=== PATIENT | female | born 1950 | race Caucasian/White ===

== ENCOUNTER → 2019-09-24 10:40 | Outpatient (CLI) | payer MEDICARE, SELFPAY ==
--- NOTE | ~2019-09-24 | XR_ITS ---
EXAMINATION: XR chest 2V DATE: 09/24/2019 10:57 INDICATION: Other malaise. TECHNIQUE: Frontal and lateral views of the chest were obtained. COMPARISON: Chest single view 04/28/2015, CT abdomen and pelvis 06/27/2019 FINDINGS: The chest demonstrates clear lungs without pneumonia, pleural effusion, or pneumothorax. Th e heart size is normal. IMPRESSION: 1. No acute cardiopulmonary disease. Reviewed, dictated and finalized at location A.
== END ==
PROVIDERS: PCP Internal Medicine; Visit Provider Internal Medicine
DX: R53.81 Other malaise (principal); R53.83 Other fatigue
CPT/HCPCS: 71046

== ENCOUNTER → 2020-03-01 13:48 | Outpatient (CLI) | payer MEDICARE, SELFPAY ==
--- NOTE | ~2020-03-01 | XR_ITS ---
EXAMINATION: XR ankle LT min 3V DATE: 03/01/2020 14:09 INDICATION: Left ankle pain. Injury 3 weeks ago. TECHNIQUE: 4 views of left ankle were obtained. COMPARISON: None. FINDINGS: Bone alignment is normal. There is a punctate calcification distal to lateral malleolus. Th ere is mild osteoarthritis of the ankle joint and talonavicular joint. There is an enthesophyte at pl archie aspect of calcaneal tuberosity. Ankle soft tissue swelling is noted. IMPRESSION: 1. Punctate calcification distal to lateral malleolus, which may be an acute avulsion fracture or a f inding from old injury. 2. Mild polyarticular osteoarthritis. Reviewed, dictated and finalized at location A. IMPRESSION: 1. Punctate calcification distal to lateral malleolus, which may be an acute av ulsion fracture or a finding from old injury. 2. Mild polyarticular osteoarthritis.
== END ==
PROVIDERS: PCP Internal Medicine; Visit Provider Internal Medicine
DX: M62.838 Other muscle spasm (principal); M19.072 Primary osteoarthritis, left ankle and foot
CPT/HCPCS: 73610

== ENCOUNTER 2020-04-30 07:22 | Outpatient (CLI) | payer MEDICARE, SELFPAY ==
--- NOTE | ~2020-04-30 | MM_ITS ---
EXAMINATION: MM screening [facility] BI w altaf HISTORY: Screening mammogram, history of left breast cancer TECHNIQUE: Craniocaudal and mediolateral oblique 3-D tomosynthesis images were obtained and synthetic 2-D images were generated. CAD analysis was submitted and interpreted. COMPARISON: 12/16/2018, 12/12/2017, 12/06/2017, 06/22/2016 BREAST PARENCHYMAL COMPOSITION: There are scattered areas of fibroglandular density. FINDINGS: Stable lumpectomy changes are again noted in the left breast. There is no evidence of suspi cious mass, calcification, or architectural distortion to suggest malignancy in either breast. There has been no suspicious interval change. IMPRESSION: 1. No mammographic evidence of malignancy. 2. Recommend routine screening mammography in one year. BI-RADS Category 2: Benign finding(s). Reviewed, dictated and finalized at location A. CUTTER
== END 2020-04-30 07:23 | disposition home or self-care (01) ==
LOC: ANHIMG 07:27
PROVIDERS: PCP Internal Medicine; Visit Provider Internal Medicine
DX: Z12.31 Encounter for screening mammogram for malignant neoplasm of breast (principal)
CPT/HCPCS: 77063; 77067

== ENCOUNTER → 2020-08-09 00:25 | Outpatient (CLI) | payer MEDICARE, SELFPAY ==
[2020-08-09 19:33] LABS: SARS-CoV-2 RNA PCR Negative
== END ==
PROVIDERS: PCP Internal Medicine; Visit Provider Internal Medicine Cardiovascular Disease
DX: Z01.812 Encounter for preprocedural laboratory examination (principal); Z20.822 Contact with and (suspected) exposure to COVID-19
CPT/HCPCS: C9803; U0003; U0005

== ENCOUNTER 2020-08-12 01:52 | Day surgery (SDC) | payer MEDICARE, SELFPAY ==
[2020-08-11 16:08] VITALS: BMI 31.4
[2020-08-12] VITALS (9 sets, daily range): BP systolic 103–135; BP diastolic 58–80; PULSE 69–90; RESP 14–18; TEMP 36.1; O2SAT 96–99; BMI 31.4
[2020-08-12 08:00] LABS: Basophils Percent Auto 0.5 % (0.2-1.2); Eosinophils Absolute Auto 0.1 K/mm3 (0-0.3); Eosinophils Percent Auto 1.2 % (0-4.4); Hemoglobin 14.7 g/dL (12.0-15.0); Immature Granulocyte Absolute 0.03 K/mm3 (0.00-0.031); Immature Granulocyte Percent A 0.3 % (0-0.5); Lymphocytes Absolute Auto 2.38 K/mm3 (0.9-3.2); Lymphocytes Percent Auto 26.9 % (18.3-44.2); Mean Corpuscular HGB Conc 34.2 g/dl (32-36); Mean Corpuscular Hemoglobin 28.4 pg (26-34); Mean Platelet Volume 9.1 fl (7.4-10.4); Monocytes Absolute Auto 0.6 K/mm3 (0.1-0.6); Monocytes Percent Auto 6.4 % (2.6-8.5); Neutrophils Absolute Auto 5.7 K/mm3 (1.3-6.7); Neutrophils Percent Auto 64.7 % (45.5-73.1); Platelet Count Result 359 k/mm3 (150-375); Red Blood Count 5.18 M/mm3 (4.2-5.4); White Blood Count 8.8 K/mm3 (4.5-10.0)
[2020-08-12 08:16] LABS: Anion Gap 7 mmol/L (8-16); Blood Urea Nitrogen 26 mg/dL (7-17); Calcium 9.6 mg/dL (8.4-10.2); Carbon Dioxide 38 mmol/L (22-30); Chloride 96 mmol/L (98-107); Estimated CRCL calculation 46 ml/min; Estimated Glomerular Filt Rate 50; Glucose 135 mg/dL (65-105); Potassium 3.2 mmol/L (3.4-5.0); Sodium 141 mmol/L (137-145)
[2020-08-12] MEDS: POTASSIUM CHLORIDE 20 MEQ TABLET 40 MEQ PO (09:20)
--- NOTE | 2020-08-12 10:07 | P.PCNCC_ITS ---
Cardiac Cath Procedure Note Date of procedure:: 08/12/20 Performing physician:: Victor Hugo Gold MD date of service 08/12/2020- Indication:: chest pain on exertion Brief clinical history:: this is a 69-year-old female with past medical history of hypertension, hyperlipidemia was evaluated in the office for recurrent episodes of chest pain on exertion. It was typical angina and therefore we decided to bring go to define coronary anatomy. Procedure Procedure performed:: 1-Moderate sedation that started at 9:40 a.m.and ended at 10:04 a.m.using 4mg of Versed and 25mcg fentanyl. The registered nurse was Rody Najera. 2-Selective left and right coronary angiogram. 3-Left heart catheterization with measurement of LVEDP and measurement of gradient across aortic valve. 3- LV angiogram. 4-Right common femoral arterial angiogram. 5-Deployment of 6 [place] Angio-Seal. Sedation/Medication given:: Moderate sedation. Access site:: Right common femoral artery. Estimated blood loss:: 10cc Procedure note:: After informed consent patient was brought in to research laboratory technician with the was draped and prepped in usual manner. Moderate sedation was given and the right groin was infiltrated using 1% lidocaine. Five [place] sheath was obtained using micropuncture needle and the modified Seldinger technique. Selective left coronary angiogram was done using JL4 catheter with the tip of the catheter placed in the left main coronary artery. Selective right coronary angiogram was done using JR4 catheter with the tip of the catheter placed to the right co ronary artery. After that 5 [place] pigtail catheter was advanced across the aortic valve into the left ventricle with measurement of LVEDP and measurement of gradient across aortic valve. revealed angiogram was done as well.Right common femoral arterial angiogram was done. Findings:: 1- left coronary artery is a large artery that divides into large LAD, large circumflex artery. Left main is Free of disease. 2- left anterior descending artery is a large artery that runs and wraps around the apex. Has calcification proximally and proximally there is about 20-30% stenosis. Medium-sized diagonal branch with minimal irregularities. 3- leftcircumflex artery is a large artery and free of disease. Large OM1 that is free disease. 4- right coronary artery is Large artery and dominant and free of disease. 5- LVEDP was 10 mm Hg and no gradient across aortic valve. 6- opening aortic pressure 126/70 shows a pressure 110/70. 6- LV angiogram showed normal LV systolic function with no wall motion abnormalities. 7- right femoral artery angiogram shows no significant disease in the right common femoral artery. Conclusion:: Minimal coronary irregularities Assessment and Plan Additional Plan aggressive risk factor modification for CAD.
--- NOTE | 2020-08-12 10:10 | WPDMODSED ---
Moderate Sedation Note-Pt Data Patient Data Allergies Allergy/AdvReac Type Severity Reaction Status Date / Time No Known Allergies Allergy Verified 08/11/20 17:02 Home Medications Medication Instructions Recorded Confirmed Type cholecalciferol (vitamin D3) 50 50 mcg PO DAILY #90 cap 04/02/20 08/11/20 Rx mcg (2,000 unit) capsule rosuvastatin 20 mg tablet 20 mg PO DAILY #90 tablet 04/19/20 08/11/20 Rx nebivolol 10 mg tablet 10 mg PO DAILY #90 tablet 05/04/20 08/11/20 Rx milnacipran 100 mg tablet See Rx Instructions .ROUTE 05/24/20 08/11/20 Rx .COMPLEX #60 tablet furosemide 80 mg tablet 80 mg PO DAILY #90 tablet 06/30/20 08/11/20 Rx mirabegron 25 mg tablet,extended 25 mg PO DAILY #90 tablet 06/30/20 08/11/20 Rx release 24 hr metolazone 5 mg tablet 5 mg PO DAILY 30 Days #30 tablet 08/09/20 08/11/20 Rx aspirin [Adult Aspirin EC Low 81 mg PO DAILY 08/11/20 08/11/20 History Strength] cariprazine 1.5 mg PO DAILY 08/11/20 08/11/20 History potassium chloride 40 meq PO TID 08/11/20 08/11/20 History pramipexole 1.5 mg PO HS 08/11/20 08/11/20 History Current Medications: Active Medications Sodium Chloride (Normal Saline Iv) 500 mls @ 100 mls/hr IV CONT .Q5H ABBY Sedation/Anesthesia: No previous sedation/anesthesia problems (including family history). [facility] Past Medical History Medical History ADHD (attention deficit hyperactivity disorder) Bipolar II disorder with rapid cycling Breast cancer Left Degenerative disc disease Depression Diverticulitis Fibromyalgia Generalized anxiety disorder HTN (hypertension) Irritable bowel syndrome with constipation Left ovarian cyst UTI (urinary tract infection) Surgical History Surgical History H/O colonoscopy H/O rectal polypectomy History of appendectomy History of bladder suspension procedure Family History Family History Father Cerebrovascular accident Family history of lung cancer Mother Family history of coronary artery disease Other Family history of cardiovascular disease Family history of malignant neoplasm Social History Social History Smoking status: Never smoker Alcohol intake: never Substance use: never Substance use type: does not use Living arrangements: with family Additional living arrangements comments: LIVES W/ , SAGE Gender identity (if verbalized by the patient): Female Spiritual care concerns: No Mod Sed Physical Exam Physical Exam Pre Procedural Exam: Normal: Appearance, Eyes, Ears, Nose, Neck, Throat, Airway, Lungs, Heart Size, Heart Rate, Heart Rhythm, Neuro Exam, Abdomen, Liver, Kidneys, Spleen, Breasts, Genitalia, Extremities and Skin Hours since solid foods: 8 Hours since liquid intake: 8 Internal Medicine - PN: Obj Da Vital Signs Vital Signs: Vital Signs - 24 hr 08/12/20 08:19 Temperature 36.1 C L Pulse Rate 90 Respiratory Rate 14 Blood Pressure 135/80 Pulse Oximetry 98 Meds/Results Medications: Active Medications Generic Name Dose Route Start Last Admin Trade Name Freq PRN Reason Stop Dose Admin Sodium Chloride 500 mls @ 100 mls/hr 08/12/20 07:30 Normal Saline Iv IV CONT .Q5H ABBY Labs CBC & Chem 7: 08/12/20 07:54 08/12/20 07:54 Labs: Laboratory Results - last 24 hr 08/12/20 08/12/20 07:54 07:54 WBC 8.8 RBC 5.18 Hgb 14.7 Hct 43.0 MCV 83.0 MCH 28.4 MCHC 34.2 RDW 13.0 Plt Count 359 MPV 9.1 Immature Gran % (Auto) 0.3 Neut % (Auto) 64.7 Lymph % (Auto) 26.9 Conway % (Auto) 6.4 Eos % (Auto) 1.2 Baso % (Auto) 0.5 Lymph # (Auto) 2.38 [place] # (Auto) 0.6 Eos # (Auto) 0.1 Baso # (Auto) 0.0 Abs Immat Gran (auto) 0.03 Absolute Neuts (auto) 5.7 Absolute Nucleated RBC
--- NOTE | 2020-08-12 10:11 | WPDHPUPDATE1 ---
History and Physical Update Update Date/Time: 08/12/20 10:11 History and Physical has been reviewed, including an updated exam of the patient. There are NO changes in the patient's condition. Risks, benefits, and alternatives have been discussed and questions answered. Patient agrees to proceed with procedure.
--- NOTE | 2020-08-12 12:57 | SUR.PHASEII ---
Pt. given post cardiac cath. discharge education. Pt. verbalizes understanding of education. R femoral site dressing clean, dry, and intact upon discharge with no evidence of bleeding or hematoma. Pt. escorted to private vehicle with spouse. No change in pt. condition upon departure.
== END 2020-08-12 13:28 | disposition home or self-care (01) ==
PROVIDERS: PCP Internal Medicine; Visit Provider Internal Medicine Cardiovascular Disease
PROC: 4A023N7 Measurement of Cardiac Sampling and Pressure, Left Heart, Percutaneous Approach (ICD-10-PCS; CPT 93452; principal; 2020-08-12 09:00)
DX: I25.10 Atherosclerotic heart disease of native coronary artery without angina pectoris (principal); R07.9 Chest pain, unspecified; I10 Essential (primary) hypertension; E78.5 Hyperlipidemia, unspecified; F31.81 Bipolar II disorder; K58.1 Irritable bowel syndrome with constipation; F41.1 Generalized anxiety disorder; M79.7 Fibromyalgia; F90.9 Attention-deficit hyperactivity disorder, unspecified type; Z85.3 Personal history of malignant neoplasm of breast
CPT/HCPCS: 36415; 80048; 85025; 93458; A9270; C1760; C1769; C1887; C1894; C9803; G0269; J1644; J2250; J3010; J7040; U0003; U0005

== ENCOUNTER 2020-09-01 10:23 | Outpatient (CLI) | payer MEDICARE, SELFPAY ==
--- NOTE | ~2020-09-01 | NM_ITS ---
EXAMINATION: NM bone scan whole body DATE: 09/01/2020 13:36 INDICATION: Personal history of malignant neoplasm of breast. TECHNIQUE: 20.6 mCi Tc-99m HDP was administered intravenously. Delayed whole-body scintigrams were o btained. COMPARISON: CT abdomen and pelvis 06/27/2019, chest CT 08/23/2015 FINDINGS: There is disc-centered increased activity in the lumbar spine correlating with severe degen erative disc disease by CT. There is joint-centered increased activity in the sternoclavicular joints and acromioclavicular joints and wrists and feet, likely osteoarthritis. There is increased activity at the sternal synchondrosis correlating with degenerative change by CT. IMPRESSION: 1. No evidence of metastatic disease. Reviewed, dictated and finalized at location A.
== END 2020-09-01 10:24 | disposition home or self-care (01) ==
PROVIDERS: PCP Internal Medicine; Visit Provider Internal Medicine
DX: M89.8X9 Other specified disorders of bone, unspecified site (principal); Z85.3 Personal history of malignant neoplasm of breast
CPT/HCPCS: 78306; A9561

== ENCOUNTER 2021-03-08 10:05 | Outpatient (CLI) | payer MEDICARE, SELFPAY ==
--- NOTE | ~2021-03-08 | US_ITS ---
EXAMINATION: US venous doppler LE RT DATE: 03/08/2021 10:30 INDICATION: Right lower limb edema. TECHNIQUE: Grayscale ultrasound images without and with compression and Doppler ultrasound images of the right lower extremity veins were obtained. COMPARISON: None. FINDINGS: The visualized portions of right common femoral vein, profunda (deep) femoral vein, femoral vein, pop liteal vein, peroneal veins, posterior tibial veins, and greater saphenous vein outflow are patent. IMPRESSION: 1. No deep venous thrombosis. Reviewed, dictated and finalized at location A.
--- NOTE | ~2021-03-08 | XR_ITS ---
XR knee RT 2V 03/08/2021 10:33 Indication: Right knee pain Procedure: 2 views right knee Comparison: 03/22/2018 Findings: There is mild patellofemoral compartment osteoarthritis. Small knee effusion. No acute frac ture or traumatic malalignment. Impression: 1: Mild patellofemoral compartment osteoarthritis with small effusion. Reviewed, dictated and finalized at location A. Impression: 1: Mild patellofemoral compartment osteoarthritis with small effusion.
== END 2021-03-08 10:06 | disposition home or self-care (01) ==
LOC: ANHIMG 10:10
PROVIDERS: PCP Nurse Practitioner Family; Visit Provider Nurse Practitioner Family
DX: R60.0 Localized edema (principal); M17.11 Unilateral primary osteoarthritis, right knee; M25.461 Effusion, right knee
CPT/HCPCS: 73560; 93971

== ENCOUNTER → 2021-11-11 14:31 | Outpatient (CLI) | payer MEDICARE, SELFPAY ==
--- NOTE | ~2021-11-11 | XR_ITS ---
XR chest 2V DATE: 11/11/2021 14:41 INDICATION: Cough TECHNIQUE: 2 views COMPARISON: 09/23/2021 view chest FINDINGS: Cardiomegaly. Aortic calcification, ectasia and mild tortuosity. No hilar or mediastinal enlargement. No pulmonary infiltrate or consolidation, pleural effusion or pulmonary vascular congestion or pneumo thorax. Degenerative changes of the thoracic and lumbar spine. Osteopenia. IMPRESSION: Cardiomegaly, aortic atherosclerosis No active pulmonary disease Reviewed, dictated and finalized at location A.
== END ==
PROVIDERS: PCP Family Medicine; Visit Provider Nurse Practitioner Family
DX: R05.9 Cough, unspecified (principal); M47.815 Spondylosis without myelopathy or radiculopathy, thoracolumbar region
CPT/HCPCS: 71046

== ENCOUNTER 2022-03-10 11:05 | Outpatient (CLI) | payer MEDICARE, SELFPAY ==
[2022-03-10 12:34] LABS: Appearance Urine Clear (Clear); Bilirubin Urine Negative (Negative); Blood Urine Negative (Negative); Color Urine Yellow (Yellow); Glucose Urine UA Negative (Negative); Ketones Urine Negative (Negative); Leukocyte Esterase Ur Negative LEU/UL (Negative); Nitrate Urine Negative (Negative); Protein Urine Negative (Negative); Specific Grav Ur 1.015 (1.001-1.035); Urobilinogen Urine 0.2 mg/dL (<2.0)
[2022-03-10 12:45] LABS: Add Urine Microscopic? NO
[2022-03-10 13:28] LABS: Anion Gap 11 mmol/L (8-16); Blood Urea Nitrogen 23 mg/dL (7-17); Carbon Dioxide 26 mmol/L (22-30); Chloride 101 mmol/L (98-107); Estimated Glomerular Filt Rate 45; Glucose 108 mg/dL (65-110); Potassium 4.3 mmol/L (3.4-5.0); Sodium 138 mmol/L (137-145)
[2022-03-10 13:32] LABS: Partial Thromboplastin Time 30.9 SECONDS (22.3-36.8)
== END 2022-03-10 11:06 | disposition home or self-care (01) ==
LOC: ANHSURGERY 11:12
PROVIDERS: Anesthesiology; PCP Nurse Practitioner Family; Visit Provider Urology
DX: N36.42 Intrinsic sphincter deficiency (ISD) (principal); N18.30 Chronic kidney disease, stage 3 unspecified; Z01.818 Encounter for other preprocedural examination
CPT/HCPCS: 36415; 80048; 81003; 85610; 85730

== ENCOUNTER 2022-03-13 01:33 | Day surgery (SDC) | payer MEDICARE, SELFPAY ==
[2022-03-02 12:36] VITALS: BMI 32.5
--- NOTE | 2022-03-02 12:42 | PC.NURSE ---
Report to the Outpatient Waiting Room, entrance under the green pavilion located off [facility], at time _1015_ on date _[id number]_. OR Time: _1215_. Time changes happen often and if your time is changed the preop area will call you the afternoon before. - You and your visitor will be asked to self-screen and do not enter if you have any COVID symptoms. - Only one visitor and NO children visitors are allowed at this time. - The patient visitor is requested to leave or wait in car when not with patient due to restrictions. - A mask is required within the hospital. Patients may have clear liquids (water, carbonated beverages, clear teas, apple juice) until 3 hours prior to surgery with a maximum of 20 ounces. - No food from midnight until time of surgery Take the following medications with a SIP of water the morning of surgery: ____Levothyroxine and Nebivilol and if needed alprazolam. Medications to discontinue per physician ____Aspirin Date to take last [id number] Please no make-up, nail romansh, hairspray, perfume, deodorant, or body powder the day of surgery. No jewelry (including any body piercings) or valuables the day of surgery, leave them at home. Please take a shower or bath the night before, or the morning of, surgery with an antibacterial soap. Wear comfortable, loose fitting clothing. - Jewelry must be removed prior to entering the operating room. Rings and piercings that are not removed may be cut off. - The hospital will not accept responsibility for valuables. - Please leave all valuables, including medications, at home the day of surgery. If you are going home after surgery, a licensed tractor driver must drive you home. - NO public transportation without another adult. - We recommend that an adult stay with you for 24 hours following discharge. - We also recommend that you do not drive, make important decision, drink alcoholic beverages, or take any drugs that were not prescribed by your health care provider for at least 24 hours after your discharge time. Follow any additional instructions given to you from your surgeon. If you or anyone in your household have experienced Covid symptoms in the past week, please notify your surgeon or the nurse liaison at the phone number below for possible testing. Telephone instructions given to __Patient___and asked if any additional questions and then verbalized understanding. Patient advised to call surgeon office or pre surgery nurse liaison [phone] if any additional questions.
--- NOTE | 2022-03-10 10:19 | PM.IMHP ---
H&P: HPI History of Present Illness Date/Time: 03/10/22 10:19 Chief Complaint: Incontinence Narrative: 71-year-old incontinence. She is on medications for overactive bladder. She presents for a bulking agent her stress of continence portion. She has intrinsic sphincter deficiency Review of Systems Review of Systems: All systems reviewed & are unremarkable except as noted in HPI and below PMFSH Past Medical History Medical History Acute sinusitis ADHD (attention deficit hyperactivity disorder) B12 deficiency Bilateral edema of lower extremity Bipolar II disorder with rapid cycling BMI 32.0-32.9,adult Breast cancer Left Breast cancer screening Bunion, left foot Cataracts, both eyes Chest pain CKD (chronic kidney disease) stage 3, GFR 30-59 ml/min Cough Degenerative disc disease Depression Diverticulitis Dyspnea on exertion Dyspnea on exertion Elevated fasting glucose Fatigue Fatigue Fibromyalgia Foot pain, left Gastric neurostimulator device in situ implanted October 2019 at [facility] Generalized anxiety disorder HTN (hypertension) Hyperlipidemia Hypertension Irritable bowel syndrome with constipation Left ovarian cyst Leg edema, right Memory loss Nausea Need for hepatitis C screening test Osteopenia Overactive bladder Pain in right leg Personal history of colonic polyps Biopsy shows tubular adenoma (October 2019) Restless leg syndrome Right knee pain Shortness of breath UTI (urinary tract infection) Wheezing Surgical History Surgical History H/O colonoscopy H/O rectal polypectomy History of appendectomy History of bladder suspension procedure Family History Family History Father Cerebrovascular accident Family history of lung cancer Mother Family history of coronary artery disease Other Family history of cardiovascular disease Family history of malignant neoplasm Social History Social History Smoking status: Never smoker Alcohol intake: never Substance use: never Substance use type: does not use Additional living arrangements comments: LIVES W/ , SAGE Gender identity (if verbalized by the patient): Female Spiritual care concerns: No Meds Home Medications and Allergies Home Medications Medication Instructions Recorded Confirmed Type aspirin 81 mg tablet,delayed 81 mg PO DAILY 08/11/20 03/02/22 History release famotidine 20 mg tablet 20 mg PO BID #60 tabs 03/08/21 03/02/22 Rx levothyroxine 25 mcg capsule 25 mcg PO DAILY 03/08/21 03/02/22 History nebivolol 20 mg tablet 20 mg PO DAILY 90 days #90 tabs 03/21/21 03/02/22 Rx spironolactone 100 mg tablet 100 mg PO QAM 05/31/21 03/02/22 History milnacipran 100 mg tablet (Savella) 100 mg PO BID #60 tabs 10/15/21 03/02/22 Rx pramipexole 1.5 mg tablet 1.5 mg PO HS #90 tabs 11/11/21 03/02/22 Rx metformin 500 mg tablet,extended 500 mg PO BID #60 tabs 12/27/21 03/02/22 Rx release 24hr alprazolam 0.25 mg tablet (Xanax) 0.25 mg PO BID PRN anxiety #60 tabs 02/16/22 03/02/22 Rx cyanocobalamin (vitamin B-12) 500 500 mcg PO DAILY 03/02/22 03/02/22 History mcg tablet (Vitamin B-12) oxybutynin chloride 10 mg 10 mg PO DAILY 03/02/22 03/02/22 History tablet,extended release 24 hr Allergies Allergy/AdvReac Type Severity Reaction Status Date / Time melatonin AdvReac Severe Vomiting Verified 03/02/22 12:32 diphenhydramine AdvReac Unknown Shakiness Verified 03/02/22 12:32 [From Benadryl] Exam Narrative: No acute distress Fixed urethra Alert orient x3 Assessment and Plan Assessment and plan (1) Intrinsic sphincter deficiency (ISD): Code(s): N36.42 - Intrinsic sphincter deficiency (ISD) Status: Acute Assessment and Plan: Cystoscopy with injecti
--- NOTE | 2022-03-13 07:16 | WPDHPUPDATE1 ---
History and Physical Update Update Date/Time: 03/13/22 07:16 History and Physical has been reviewed, including an updated exam of the patient. There are NO changes in the patient's condition. Risks, benefits, and alternatives have been discussed and questions answered. Patient agrees to proceed with procedure.
[2022-03-13 10:44] VITALS: BP 131/68; PULSE 70; RESP 18; TEMP 36.1; O2SAT 100
[2022-03-13] MEDS: LACTATED RINGERS 1,000 ML 30 ML IV CONT ×2 (10:58→13:15)
[2022-03-13 11:25] LABS: Glucose Point of Care 112 mg/dl (65-105)
--- NOTE | 2022-03-13 11:50 | WPDANESEPPF ---
Anes - Initial Pre Proc Eval Procedure: Operation Date: 03/13/22 12:15 Proposed Procedures p Cystoscopy with Bulking Agent - Benny Morfin MD Date/Time: 03/13/22 11:50 Surgeon: Benny Morfin MD Pre Op Diagnosis: intransient sphincter deficiency Patient Data Age: 71 Gender: F Height: 1.63 m Weight: 86.9 kg Last Vital Signs Temp 36.1 C L 03/13/22 10:44 Pulse 70 03/13/22 10:44 Resp 18 03/13/22 10:44 BP 131/68 03/13/22 10:44 Pulse Ox 100 03/13/22 10:44 O2 Del Method Room Air 03/13/22 10:44 Allergies Allergy/AdvReac Type Severity Reaction Status Date / Time melatonin AdvReac Severe Vomiting Verified 03/13/22 11:05 diphenhydramine AdvReac Unknown Shakiness Verified 03/13/22 11:05 [From [facility]] Home Medications Medication Instructions Recorded Confirmed Type aspirin 81 mg tablet,delayed 81 mg PO DAILY 08/11/20 03/13/22 History release famotidine 20 mg tablet 20 mg PO BID #60 tabs 03/08/21 03/13/22 Rx levothyroxine 25 mcg capsule 25 mcg PO DAILY 03/08/21 03/13/22 History nebivolol 20 mg tablet 20 mg PO DAILY 90 days #90 tabs 03/21/21 03/13/22 Rx spironolactone 100 mg tablet 100 mg PO QAM 05/31/21 03/13/22 History milnacipran 100 mg tablet (Savella) 100 mg PO BID #60 tabs 10/15/21 03/13/22 Rx pramipexole 1.5 mg tablet 1.5 mg PO HS #90 tabs 11/11/21 03/13/22 Rx metformin 500 mg tablet,extended 500 mg PO BID #60 tabs 12/27/21 03/13/22 Rx release 24hr alprazolam 0.25 mg tablet (Xanax) 0.25 mg PO BID PRN anxiety #60 tabs 02/16/22 03/13/22 Rx cyanocobalamin (vitamin B-12) 500 500 mcg PO DAILY 03/02/22 03/13/22 History mcg tablet (Vitamin B-12) oxybutynin chloride 10 mg 10 mg PO DAILY 03/02/22 03/13/22 History tablet,extended release 24 hr Laboratory Tests 03/13/22 11:22 POC Capillary Glucose 112 mg/dl H mg/dl (65-105) Patient hx anesthesia problems: none Family hx anesthesia problems: other (mother slow to awaken) Results Review: All pre-operative results and documents have been reviewed as part of the pre-operative evaluation. [facility] Past Medical History Medical History Acute sinusitis ADHD (attention deficit hyperactivity disorder) B12 deficiency Bilateral edema of lower extremity Bipolar II disorder with rapid cycling BMI 32.0-32.9,adult Breast cancer Left Breast cancer screening Bunion, left foot Cataracts, both eyes Chest pain CKD (chronic kidney disease) stage 3, GFR 30-59 ml/min Cough Degenerative disc disease Depression Diverticulitis Dyspnea on exertion Dyspnea on exertion Elevated fasting glucose Fatigue Fatigue Fibromyalgia Foot pain, left Gastric neurostimulator device in situ implanted October 2019 at [facility] Gastroenterology Generalized anxiety disorder HTN (hypertension) Hyperlipidemia Hypertension Irritable bowel syndrome with constipation Left ovarian cyst Leg edema, right Memory loss Nausea Need for hepatitis C screening test Osteopenia Overactive bladder Pain in right leg Personal history of colonic polyps Biopsy shows tubular adenoma (October 2019) Restless leg syndrome Right knee pain Shortness of breath UTI (urinary tract infection) Wheezing Surgical History Surgical History H/O colonoscopy H/O rectal polypectomy History of appendectomy History of bladder suspension procedure Family History Family History Father Cerebrovascular accident Family history of lung cancer Mother Family history of coronary artery disease Other Family history of cardiovascular disease Family history of malignant neoplasm Social History Social History Smoking status: Never smoker Alcohol intake: never Substance use: never Substance use type: does not use Living arrangeme
[2022-03-13] MEDS: ceFAZolin 2 GM/D5W 50 ML 2 GM/50 ML BAG IVPB (12:06)
--- NOTE | 2022-03-13 12:25 | P.OP_ITS ---
Procedure Note - Detailed Date of Procedure 03/13/22 Pre-op Diagnosis intransient sphincter deficiency Post-op Diagnosis Same Procedure Performed Cystoscopy with suburethral injection of implant material [id number] Surgeon Benny Morfin MD Anesthesia MAC Indications This is a patient with stress urinary incontinence due to intrinsic sphincter deficiency. She has undergone a previous stress incontinence procedure. She desires surgical correction. They understand the risk of bleeding, and infection, lack of efficacy, need for repeat procedures, obstructive voiding requiring catheterization. They agreed to proceed. Findings Open urethra consistent with intrinsic sphincter deficiency Normal cystoscopy Description of Procedure The patient was correctly identified and informed consent was obtained. They w ere brought to the operating room. They were given MAC anesthesia. They were placed in the dorsal lithotomy position. They were prepped and draped in a sterile fashion. A time-out performed. Cystoscopy revealed no tumors in the bladder and an open urethra consistent with intrinsic sphincter deficiency. I chose a site in the urethra 2 cm distal to bladder neck. I injected the bulking agent circumferentially. I used 1 syringe of the bulking material total. The bulk material was bulkamid. Threre Was good bulking effect. The bladder was left partially full. They were awakened and transferred to the PACU in stable condition. Implants Urethral bulking agent Estimated Blood Loss 1 Drains No Packing No Pathology None sent Complications No immediate complications Condition Stable Disposition PACU
[2022-03-13 12:28] VITALS: BP 136/74; PULSE 71; RESP 12; O2SAT 95
[2022-03-13] MEDS: ONDANSETRON INJ 4 MG/2 ML VIAL IV PUSH (12:40)
[2022-03-13 12:46] LABS: Glucose Point of Care 100 mg/dl (65-105)
[2022-03-13 12:55] VITALS: BP 127/59; PULSE 57; RESP 12; O2SAT 98
[2022-03-13 13:25] VITALS: BP 116/60; PULSE 56; RESP 14
[2022-03-13 13:55] VITALS: BP 116/58; PULSE 56; RESP 14
[2022-03-13 14:20] VITALS: BP 127/65; PULSE 60; RESP 14
== END 2022-03-13 14:24 | disposition home or self-care (01) ==
PROVIDERS: PCP Nurse Practitioner Family; Visit Provider Urology
PROC: 3E0K8GC Introduction of Other Therapeutic Substance into Genitourinary Tract, Via Natural or Artificial Opening Endoscopic (ICD-10-PCS; CPT 51715; principal; 2022-03-13 12:15)
DX: N36.42 Intrinsic sphincter deficiency (ISD) (principal); N39.3 Stress incontinence (female) (male); I12.9 Hypertensive chronic kidney disease with stage 1 through stage 4 chronic kidney disease, or unspecified chronic kidney disease; N18.30 Chronic kidney disease, stage 3 unspecified; E78.5 Hyperlipidemia, unspecified; F31.9 Bipolar disorder, unspecified; M79.7 Fibromyalgia; E53.8 Deficiency of other specified B group vitamins; K58.1 Irritable bowel syndrome with constipation; G25.81 Restless legs syndrome; F41.1 Generalized anxiety disorder; E66.9 Obesity, unspecified; Z68.32 Body mass index [BMI] 32.0-32.9, adult; Z79.82 Long term (current) use of aspirin; Z79.84 Long term (current) use of oral hypoglycemic drugs
CPT/HCPCS: 51715; 36415; 80048; 81003; 82948; 85610; 85730; A9270; J0690; J2405; J2704; J3010; J7120; L8606

== ENCOUNTER → 2023-04-24 09:55 | Outpatient (CLI) | payer MEDICARE, SELFPAY ==
--- NOTE | ~2023-04-24 | XR_ITS ---
Clinical Indication: Cough PA and lateral views of the chest: Comparison: 11/11/2021 Findings: The lungs are clear, without evidence of focal consolidation or pleural effusion. Cardiome diastinal silhouette is within normal limits. Bones and soft tissues are unremarkable. Impression: Normal chest. Reviewed, dictated and finalized at location . TABOUT HEAD Impression: Normal chest.
== END ==
PROVIDERS: PCP Family Medicine; Visit Provider Nurse Practitioner Family
DX: R05.9 Cough, unspecified (principal)
CPT/HCPCS: 71046

== ENCOUNTER → 2023-08-28 13:35 | Outpatient (CLI) | payer MEDICARE, SELFPAY ==
--- NOTE | ~2023-08-28 | XR_ITS ---
EXAM: XR abdomen/kub 1V DATE: 08/28/2023 13:54 HISTORY: R10.9 - Unspecified abdominal pain . COMPARISON: CT abdomen pelvis 06/27/2019. FINDINGS: Clear lung bases. Normal bowel gas pattern. Hepatomegaly. Right-sided stimulator pack, jessa d terminating over the left sacrum. Multiple pelvic phleboliths. Lumbar degenerative disc disease. Mi ld bilateral hip osteoarthritis. IMPRESSION: Hepatomegaly. No radiographic evidence of obstruction or ileus. Reviewed, dictated and finalized at location K.
== END ==
PROVIDERS: PCP Family Medicine; Visit Provider Nurse Practitioner Family
DX: R10.9 Unspecified abdominal pain (principal); R15.9 Full incontinence of feces; R16.0 Hepatomegaly, not elsewhere classified
CPT/HCPCS: 74018

== ENCOUNTER 2023-12-10 09:43 | Outpatient (CLI) | payer MEDICARE, SELFPAY ==
--- NOTE | ~2023-12-10 | XR_ITS ---
EXAMINATION: XR sacrum coccyx min 2V DATE: 12/10/2023 10:03 INDICATION: Fecal incontinence not due to organic disease. TECHNIQUE: 3 views of the sacrum and coccyx were obtained. COMPARISON: None. FINDINGS: Bone alignment is normal. No fracture. There is severe lumbar spondylosis. There is an elec trode in left S3 neural foramen. IMPRESSION: 1. Electrode in left S3 neural foramen. Reviewed, dictated and finalized at location A.
== END 2023-12-10 09:44 | disposition home or self-care (01) ==
LOC: ANHIMG 09:46
PROVIDERS: PCP Family Medicine; Visit Provider Urology
DX: F98.1 Encopresis not due to a substance or known physiological condition (principal)
CPT/HCPCS: 72220

== ENCOUNTER 2023-12-24 11:59 | Outpatient (CLI) | payer MEDICARE, SELFPAY ==
--- NOTE | ~2023-12-24 | US_ITS ---
BILATERAL LOWER EXTREMITY VENOUS ULTRASOUND Ordering provider: Bren Andre NP History: . R60.0 - Localized edema . Comparison: None. FINDINGS: RIGHT LOWER EXTREMITY VEINS: --COMMON FEMORAL: Patent and free of thrombus. Normal compressibility, phasic flow and augmentation. --PROXIMAL SUPERFICIAL FEMORAL: Patent and free of thrombus. Normal compressibility, phasic flow and augmentation. --DISTAL SUPERFICIAL FEMORAL: Patent and free of thrombus. Normal compressibility, phasic flow and au gmentation. --POPLITEAL: Patent and free of thrombus. Normal compressibility, phasic flow and augmentation. --POSTERIOR TIBIAL: Patent and free of thrombus. Normal compressibility, phasic flow and augmentation . LEFT LOWER EXTREMITY VEINS: --COMMON FEMORAL: Patent and free of thrombus. Normal compressibility, phasic flow and augmentation. --PROXIMAL SUPERFICIAL FEMORAL: Patent and free of thrombus. Normal compressibility, phasic flow and augmentation. --DISTAL SUPERFICIAL FEMORAL: Patent and free of thrombus. Normal compressibility, phasic flow and au gmentation. --POPLITEAL: Patent and free of thrombus. Normal compressibility, phasic flow and augmentation. --POSTERIOR TIBIAL: Patent and free of thrombus. Normal compressibility, phasic flow and augmentation . IMPRESSION: Negative bilateral lower extremity venous US. No deep vein thrombosis. Reviewed, dictated and finalized at location A.
--- NOTE | ~2023-12-24 | XR_ITS ---
Clinical Indication: Dyspnea PA and lateral views of the chest: Comparison: 04/24/2023 Findings: The lungs are clear, without evidence of focal consolidation or pleural effusion. Cardiome diastinal silhouette is within normal limits. Bones and soft tissues are unremarkable. Impression: Normal chest. Reviewed, dictated and finalized at location . Impression: Normal chest.
== END 2023-12-24 12:00 | disposition home or self-care (01) ==
LOC: ANHIMG 12:03
PROVIDERS: PCP Family Medicine; Visit Provider Nurse Practitioner Family
DX: R60.0 Localized edema (principal); R05.9 Cough, unspecified; R06.09 Other forms of dyspnea
CPT/HCPCS: 71046; 93970

== ENCOUNTER 2024-01-04 14:05 | Outpatient (CLI) | payer MEDICARE, SELFPAY ==
--- NOTE | ~2024-01-04 | MM_ITS ---
EXAMINATION: MM screening eric BI w altaf HISTORY: Screening TECHNIQUE: Craniocaudal and mediolateral oblique 3-D tomosynthesis images were obtained and synthetic 2-D images were generated. CAD analysis was submitted and interpreted. COMPARISON: Comparison to multiple prior studies sequentially, with oldest reviewed study dated 10/2016. BREAST PARENCHYMAL COMPOSITION: Not dense: There are scattered areas of fibroglandular density. FINDINGS: There is no evidence of suspicious mass, calcification, or architectural distortion to sugg est malignancy in either breast. There has been no suspicious interval change. IMPRESSION: 1. No mammographic evidence of malignancy. 2. Recommend routine screening mammography in one year. BI-RADS Category 1: Negative Reviewed, dictated and finalized at location B.
== END 2024-01-04 14:06 ==
LOC: MICIMG 14:06
PROVIDERS: PCP Family Medicine; Visit Provider Nurse Practitioner Family
DX: Z12.31 Encounter for screening mammogram for malignant neoplasm of breast (principal)
CPT/HCPCS: 77063; 77067

== ENCOUNTER 2024-02-06 08:14 | Outpatient (CLI) | payer MEDICARE, SELFPAY ==
--- NOTE | 2024-02-06 08:24 | ECHO_ITS ---
Patient Info Name: Ratna Teran Age: 73 years : 1950 Gender: Female Ht: 64 in Wt: 187 lbs BSA: 1.99 m2 HR: 73 bpm BP: 130 / 76 mmHg Heart Rhythm: Sinus Rhythm Technical Quality: Fair Exam Date: 02/06/2024 8:33 AM Exam Location: Echo Lab Patient Status: Outpatient Admit Date: 02/06/2024 Staff Ordering Physician: Bren Andre NP Field Technical Specialist: Claudette Simms RDCS Attending Provider: Bren Andre NP Exam Type: CA echo doppler color flow Study Info Indications R06.09 - Other forms of dyspnea Complete two-dimensional, color flow and Doppler transthoracic echocardiogram is performed. Summary 1. Complete two-dimensional, color flow and Doppler transthoracic echocardiogram is performed. 2. Left ventricular chamber dimension is normal. 3. Ventricular septum is sigmoid shaped. No resting LVOT obstruction. 4. Left ventricular systolic function is normal, estimated at 60-65%. 5. The left ventricular diastolic function is grade I diastolic dysfunction. 6. E/e' 10 is mildly elevated. 7. Left atrial chamber dimension is mildly enlarged. 8. There is mild aortic valve sclerosis. 9. There is mild mitral valve regurgitation. 10. There is trace tricuspid valve regurgitation. 11. No pulmonary hypertension, estimated pulmonary arterial systolic pressure is 24 mmHg. Left Ventricle E/e' 10 is mildly elevated. Ventricular septum is sigmoid shaped. No resting LVOT obstruction. Left ventricular chamber dimension is normal. Left ventricular systolic function is normal, estimated at 60-65%. The left ventricular diastolic function is grade I diastolic dysfunction. Right Ventricle Right ventricular systolic function is normal and with normal TAPSE 2.0 cm. Right ventricular chamber dimension is normal. Left Atria Left atrial chamber dimension is mildly enlarged. Right Atria Right atrial chamber dimension is normal. Aortic Valve The aortic valve is trileaflet. There is mild aortic valve sclerosis. There is no aortic valve stenosis. There is no aortic valve regurgitation. Pulmonic Valve There is no pulmonic regurgitation. Mitral Valve There is no mitral valve stenosis. There is mild mitral valve regurgitation. Tricuspid Valve There is trace tricuspid valve regurgitation. No pulmonary hypertension, estimated pulmonary arterial systolic pressure is 24 mmHg. Pericardium/Pleural There is no pericardial effusion. Inferior Vena Cava Normal inferior vena cava with >50% collapse upon inspiration consistent with normal right atrial pressure, 5 mmHg. Aorta The aortic root size at the sinus of Valsalva is normal. Left Ventricular Outflow Tract Name Value Normal LVOT 2D LVOT Diameter 2.0 cm LVOT Doppler LVOT Peak Gradient 4 mmHg LVOT Mean Gradient 2 mmHg LVOT VTI 22 cm LVOT VTI/AV VTI Ratio 0.6 LVOT Stroke Volume 68 ml LVOT CO 4.5 l/min LVOT CI 2.2 l/min/m2 Pulmonic Valve Name
--- NOTE | 2024-02-06 08:30 | EST_ITS ---
Patient Info Name: Ratna eTran Age: 73 years : 1950 Gender: Female Ht: 64 in Wt: 189 lbs BSA: 2.00 m2 HR: 66 bpm BP: 112 / 64 mmHg Heart Rhythm: Sinus Rhythm Exam Date: 02/06/2024 10:05 AM Exam Location: Echo Lab Patient Status: Outpatient Admit Date: 02/06/2024 Staff Ordering Physician: Bren Andre NP Attending Provider: Bren Andre NP Exercise Technologist: Carli Allen CT Exercise Physician: Wong Merino MD Exam Type: CA stress test treadmill Study Info Indications I10 - Essential (primary) hypertension R06.09 - Other forms of dyspnea A treadmill exercise stress test was performed. Summary 1. Exercise capacity fair to good at 6-[address] segment response to stress. 3. Hypertensive BP response to exercise. 4. Stress test was supervised and interpreted by Dr. Wong Merino. Protocol: Carlos Eduardo Stress ECG Details Stage: REST Duration (min): 1 min : 9 sec Speed (mph): 0.0 Grade (%): 0 HR (bpm): 70 SBP (mmHg): 112 DBP (mmHg): 64 METS: --- Stage: REST Duration (min): 25 min : 1 sec Speed (mph): 0.0 Grade (%): 0 HR (bpm): 73 SBP (mmHg): 112 DBP (mmHg): 64 METS: --- Stage: STAGE 1 Duration (min): 1 min : 0 sec Speed (mph): 1.7 Grade (%): 10 HR (bpm): 90 SBP (mmHg): 112 DBP (mmHg): 64 METS: --- Stage: STAGE 1 Duration (min): 2 min : 0 sec Speed (mph): 1.7 Grade (%): 10 HR (bpm): 98 SBP (mmHg): 112 DBP (mmHg): 64 METS: --- Stage: STAGE 1 Duration (min): 3 min : 0 sec Speed (mph): 1.7 Grade (%): 10 HR (bpm): 114 SBP (mmHg): 156 DBP (mmHg): 90 METS: --- Stage: STAGE 2 Duration (min): 1 min : 0 sec Speed (mph): 2.5 Grade (%): 12 HR (bpm): 123 SBP (mmHg): 156 DBP (mmHg): 90 METS: --- Stage: STAGE 2 Duration (min): 2 min : 0 sec Speed (mph): 2.5 Grade (%): 12 HR (bpm): 133 SBP (mmHg): 196 DBP (mmHg): 87 METS: --- Stage: STAGE 2 Duration (min): 2 min : 59 sec Speed (mph): 3.4 Grade (%): 14 HR (bpm): 141 SBP (mmHg): 196 DBP (mmHg): 87 METS: --- Stage: RECOVERY Duration (min): 1 min : 0 sec Speed (mph): 0.0 Grade (%): 0 HR (bpm): 131 SBP (mmHg): 185 DBP (mmHg): 85 METS: --- Stage: RECOVERY Duration (min): 2 min : 0 sec Speed (mph): 0.0 Grade (%): 0 HR (bpm): 110 SBP (mmHg): 185 DBP (mmHg): 85 METS: --- Stage: RECOVERY Duration (min): 3 min : 0 sec Speed (mph): 0.0 Grade (%): 0 HR (bpm): 88 SBP (mmHg): 196 DBP (mmHg): 87 METS: --- Stage: RECOVERY Duration (min): 3 min : 5 sec Speed (mph): 0.0 Grade (%): 0 HR (bpm): 85 SBP (mmHg): 196 DBP (mmHg): 87 METS: --- Rest HR: 73 bpm Peak HR: 141 bpm Rest Sys BP: 112 mmHg Peak Sys BP: 196 mmHg Max Pred HR: 149 bpm % Max Pred HR: 95 % Target HR: 127 bpm Max RPP: 27,636 bpm*mmHg Hurtado Score: 0 Target HR Summary: Patient's target heart rate was ach
== END 2024-02-06 08:15 | disposition home or self-care (01) ==
LOC: ANHCARD 08:16
PROVIDERS: PCP Family Medicine; Visit Provider Nurse Practitioner Family
DX: R06.09 Other forms of dyspnea (principal); I10 Essential (primary) hypertension; R07.9 Chest pain, unspecified; E78.5 Hyperlipidemia, unspecified; I34.0 Nonrheumatic mitral (valve) insufficiency
CPT/HCPCS: 93017; 93306

== ENCOUNTER 2024-03-07 04:13 | Day surgery (SDC) | payer MEDICARE, SELFPAY ==
[2024-02-28 15:37] VITALS: BMI 30.8
--- NOTE | 2024-02-28 15:38 | PC.NURSE ---
Report to the Outpatient Waiting Room, entrance under the green pavilion located off [facility], at time _0600_ on date _[id number]_. Planned Procedure Time: _0730_.? Time changes happen often and if your time is changed the preop area will call you the afternoon before. - You and your visitor will be asked to self-screen and do not enter if you have any COVID symptoms. Please call surgeon if you need to reschedule. - A mask is optional within the hospital at this time. Patients may have clear liquids (water, carbonated beverages, clear teas, apple juice) until 3 hours prior to surgery with a maximum of 20 ounces. - No food from midnight until time of surgery and no smoking Take only the following medications with a SIP of water on the morning of surgery: ___Buspirone, Duloxetine, Keppra, Levothyroxine, and Nebivolol DO NOT STOP ANY OF YOUR OTHER PRESCRIPTION MEDICATIONS PRIOR TO SURGERY EXCEPT THE FOLLOWING Medications to discontinue per physician None Please no make-up, nail japanese, hairspray, perfume, deodorant, or body powder the day of surgery.? No jewelry (including any body piercings) or valuables the day of surgery, leave them at home.? Please take a shower or bath the night before, or the morning of, surgery with an antibacterial soap.? Wear comfortable, loose fitting clothing.? . - Jewelry must be removed prior to entering the operating room.? Rings and piercings that are not removed may be cut off. - The hospital will not accept responsibility for valuables.? - Please leave all valuables, including medications, at home the day of surgery. If you are going home after surgery, a licensed regional company flatbed truck driver must drive you home.? - NO public transportation without another adult if you receive anesthesia. - We recommend that an adult stay with you for 24 hours following discharge. - We also recommend that you do not drive, make important decision, drink alcoholic beverages, or take any drugs that were not prescribed by your health care provider for at least 24 hours after your discharge time. Follow any additional instructions given to you from your surgeon. Telephone instructions given to __Ratna__and asked if any additional questions and then verbalized understanding. Patient advised to call surgeon office or pre surgery nurse liaison [phone] if any additional questions.
--- NOTE | 2024-03-02 17:00 | PM.IMHP ---
H&P: HPI History of Present Illness Date/Time: 03/02/24 17:00 Chief Complaint: UUI/FI Narrative: UUI and FI. previous SMS. need for MRI Review of Systems Review of Systems: All systems reviewed & are unremarkable except as noted in HPI and below PMFSH Past Medical History Medical History Abdominal pain Acute sinusitis Adenomatous colon polyp ADHD (attention deficit hyperactivity disorder) Anemia Anxiety B12 deficiency Bilateral edema of lower extremity Bipolar disorder Bipolar II disorder with rapid cycling BMI 25.0-25.9,adult BMI 27.0-27.9,adult BMI 32.0-32.9,adult BMI 33.0-33.9,adult Body mass index (BMI) of 31.0 to 31.9 in adult Breast cancer Left Breast cancer screening 03/27/22 - benign Bunion, left foot Cataracts, both eyes Chest pain Chronic diastolic (congestive) heart failure CKD (chronic kidney disease) stage 3, GFR 30-59 ml/min Cough Degenerative disc disease Depression Diverticulitis Dyspnea on exertion Dyspnea on exertion Dysuria Elevated fasting glucose Elevated TSH Essential tremor Fatigue Fatigue Fecal incontinence Fever blister Fibromyalgia Foot pain, left Gastric neurostimulator device in situ implanted [address] [facility] Gastroenterology Generalized anxiety disorder GERD (gastroesophageal reflux disease) HTN (hypertension) Hyperlipidemia Hypertension Hyperuricemia Irritable bowel syndrome with constipation Irritable bowel syndrome with diarrhea Left ovarian cyst Leg edema, right Memory loss Meningioma Muscle cramp Nausea Need for hepatitis C screening test Osteopenia 03/16/22 DEXA - normal; repeat 2 years Overactive bladder Pain in right leg Pain, joint, multiple sites Peripheral edema Personal history of colonic polyps Biopsy shows tubular adenoma (October 2019) Prediabetes Restless leg syndrome Rib pain on left side Right knee pain Seizure Serum calcium elevated Shortness of breath Thoracic back pain Upper respiratory tract infection UTI (urinary tract infection) Weakness Wheezing Surgical History Surgical History H/O colonoscopy H/O rectal polypectomy History of appendectomy History of bladder suspension procedure Family History Family History Father Cerebrovascular accident Family history of lung cancer Mother Family history of coronary artery disease Other Family history of cardiovascular disease Family history of malignant neoplasm Social History Social History Smoking status: Never smoker Alcohol intake: never Substance use: never Substance use type: does not use Lack of Transportation: No Lack of Food: Never True Current Housing: I Have Housing Concerned About Future Housing: No Difficulty Paying Gas/Electric Bills: No Difficulty Paying for Meds: No Currently Unemployed: No Education: High School Diploma/GED Difficulty w/ Childcare or Family Care: No Living arrangements: with family Additional living arrangements comments: LIVES W/ , SAGE Gender identity (if verbalized by the patient): Female Spiritual care concerns: No Meds Home Medications and Allergies Home Medications Medication Instructions Recorded Confirmed Type famotidine 20 mg tablet 20 mg PO BID #60 tabs 03/08/21 02/28/24 Rx albuterol sulfate 90 mcg/actuation 1 - 2 inh inhalation Q4-6H PRN 07/31/22 02/28/24 Rx aerosol inhaler shortness of breath or wheezing #8.5 grams levetiracetam 500 mg tablet 500 mg PO Q12H 04/24/23 02/28/24 History (Chema) nebivolol 20 mg tablet 20 mg PO DAILY 90 days #90 tabs 07/05/23 02/28/24 Rx rosuvastatin 10 mg tablet 10 mg PO DAILY #30 tabs 08/02/23 02/28/24 Rx hydrocortisone 2.5 % topical cream 1 applic RECTAL DAILY PRN 08/29/23 02/28/24 Rx with perineal applicator
[2024-03-07] VITALS (8 sets, daily range): BP systolic 115–140; BP diastolic 53–81; PULSE 66–84; RESP 16–18; TEMP 36.2; O2SAT 96–100; BMI 32.7
--- NOTE | ~2024-03-07 | XR_ITS ---
EXAMINATION: XR fluoroscopy no charge DATE: 03/07/2024 08:05 INDICATION: Fecal incontinence. Urgent continence. TECHNIQUE: 2 intraoperative fluoroscopic views of the pelvis were obtained. I was not present. Fluoro scopy exposure time was 34 seconds. COMPARISON: None. FINDINGS: There is an electrode in an S3 neural foramen. There is no side marker. IMPRESSION: 1. Electrode in an S3 neural foramen. Reviewed, dictated and finalized at location A.
--- NOTE | 2024-03-07 04:36 | WPDHPUPDATE1 ---
History and Physical Update Update Date/Time: 03/07/24 04:36 History and Physical has been reviewed, including an updated exam of the patient. There are NO changes in the patient's condition. Risks, benefits, and alternatives have been discussed and questions answered. Patient agrees to proceed with procedure.
--- NOTE | 2024-03-07 07:21 | WPDANESEPPF ---
Anes - Initial Pre Proc Eval Procedure: Operation Date: 03/07/24 07:30 Proposed Procedures p Neurostimulator Removal and Replacement - Benny Morfin MD Date/Time: 03/07/24 07:21 Surgeon: Benny Morfin MD Pre Op Diagnosis: fecal and urge incontinence Patient Data Age: 73 Gender: F Height: 1.63 m Weight: 86.4 kg Last Vital Signs Temp 97.1 F L 03/07/24 07:11 Pulse 77 03/07/24 07:11 Resp 18 03/07/24 07:11 BP 130/67 03/07/24 07:11 Pulse Ox 98 03/07/24 07:11 O2 Del Method Room Air 03/07/24 07:11 Allergies Allergy/AdvReac Type Severity Reaction Status Date / Time melatonin AdvReac Severe Vomiting Verified 03/07/24 07:04 diphenhydramine AdvReac Unknown Shakiness Verified 03/07/24 07:04 [From [facility]] Home Medications Medication Instructions Recorded Confirmed Type famotidine 20 mg tablet 20 mg PO BID #60 tabs 03/08/21 02/28/24 Rx albuterol sulfate 90 mcg/actuation 1 - 2 inh inhalation Q4-6H PRN 07/31/22 02/28/24 Rx aerosol inhaler shortness of breath or wheezing #8.5 grams levetiracetam 500 mg tablet 500 mg PO Q12H 04/24/23 02/28/24 History (Keppra) nebivolol 20 mg tablet 20 mg PO DAILY 90 days #90 tabs 07/05/23 02/28/24 Rx rosuvastatin 10 mg tablet 10 mg PO DAILY #30 tabs 08/02/23 02/28/24 Rx hydrocortisone 2.5 % topical cream 1 applic RECTAL DAILY PRN 08/29/23 02/28/24 Rx with perineal applicator hemorrhoids #30 grams (Anusol-HC) pramipexole 1.5 mg tablet 1.5 mg PO QHS #90 tabs 11/13/23 02/28/24 Rx duloxetine 60 mg capsule,delayed 60 mg PO BID #60 caps 11/22/23 02/28/24 Rx release (Cymbalta) buspirone 7.5 mg tablet 7.5 mg PO BID 12/13/23 02/28/24 History spironolactone 50 mg tablet 100 mg PO DAILY PRN edema #30 tabs 12/24/23 02/28/24 Rx cyclobenzaprine 10 mg tablet 5 - 10 mg PO QHS PRN muscle spasm 12/25/23 02/28/24 Rx #30 tabs levothyroxine 25 mcg tablet 25 mcg PO DAILY #30 tabs 12/27/23 02/28/24 Rx furosemide 20 mg tablet 20 mg PO QAM PRN edema #30 tabs 01/10/24 02/28/24 Rx Patient hx anesthesia problems: none Family hx anesthesia problems: none Results Review: All pre-operative results and documents have been reviewed as part of the pre-operative evaluation. [facility] Past Medical History Medical History Abdominal pain Acute sinusitis Adenomatous colon polyp ADHD (attention deficit hyperactivity disorder) Anemia Anxiety B12 deficiency Bilateral edema of lower extremity Bipolar disorder Bipolar II disorder with rapid cycling BMI 25.0-25.9,adult BMI 27.0-27.9,adult BMI 32.0-32.9,adult BMI 33.0-33.9,adult Body mass index (BMI) of 31.0 to 31.9 in adult Breast cancer Left Breast cancer screening 03/27/22 - benign Bunion, left foot Cataracts, both eyes Chest pain Chronic diastolic (congestive) heart failure CKD (chronic kidney disease) stage 3, GFR 30-59 ml/min Cough Degenerative disc disease Depression Diverticulitis Dyspnea on exertion Dyspnea on exertion Dysuria Elevated fasting glucose Elevated TSH Essential tremor Fatigue Fatigue Fecal incontinence Fever blister Fibromyalgia Foot pain, left Gastric neurostimulator device in situ implanted October 2019 at [facility] Gastroenterology Generalized anxiety disorder GERD (gastroesophageal reflux disease) HTN (hypertension) Hyperlipidemia Hypertension Hyperuricemia Irritable bowel syndrome with constipation Irritable bowel syndrome with diarrhea Left ovarian cyst Leg edema, right Memory loss Meningioma Muscle cramp Nausea Need for hepatitis C screening test Osteopenia 03/16/22 DEXA - normal; repeat 2 years Overactive bladder Pain in right leg Pain, joint, multiple sites Peripheral edema Personal history of colonic polyps Biopsy shows tubular adenoma (October 2019) Prediabetes Restless leg syndrome Rib pain on left side Right knee pain Seizure Serum calcium elevated Shortness of breath Thoracic back pain Upp
[2024-03-07] MEDS: ceFAZolin 2 GM/D5W 50 ML 2 GM/50 ML BAG IVPB (07:36)
[2024-03-07] MEDS: BUPIVACAINE/EPINEPHRINE 0.5% 10 ML VIAL 30 ML INFILTRATE (07:42)
[2024-03-07] MEDS: LACTATED RINGERS 1,000 ML 30 ML IV CONT (08:15)
--- NOTE | 2024-03-07 08:18 | P.OP_ITS ---
Procedure Note - Detailed Date of Procedure 03/07/24 Pre-op Diagnosis Urge incontinence Fecal incontinence Post-op Diagnosis Same Procedure Performed Removal of sacral lead placement of new right-sided sacral lead number next Placement implantable pulse generator Complex neurostimulator programming impedance checked Surgeon Benny Morfin MD Anesthesia MAC and Local Indications He has a previously placed InterStim device. She is in need of MRI and she has decreased efficacy. She is here today for revision. She understands risks of bleeding, infection, incomplete device removal, incomplete efficacy. She agrees to proceed Findings Uncomplicated InterStim revision Description of Procedure She was correctly identified. Informed consent obtained. She from the operating room. She was given monitored anesthesia care. She was placed in prone position. Low back and buttock were prepped and draped sterile fashion. Time-out performed. She was given appropriate perioperative antibiotic I used fluoroscopy to identify the previously placed sacral lead and my foramen of the sacrum. I anesthetized the skin over the pulse generator and over the foramen. I incised the skin over the pulse generator. I located the pulse generator and removed it. I then anesthetized the skin over the sacral lead. I incise the skin. I located the previously placed sacral lead and removed in its entirety I then anesthetized the contralateral side of the sacrum and proceeded to place a right-sided sacral lead. I used fluoroscopy to guide my needle. I entered the S3 foramen on the right. I stimulated the needle and got appropriate Janel and toe response at low threshold. I made a skin juana. I placed a stylet and the lead inducer sheath. I then percutaneous lead placed my lead again under fluoroscopy. I did a skipping incision take extra lead. I then tunneled the lead towards the previously placed pulse generator. The new pulse generator was programmed. Appropriate connections were made bet ween the lead and pulse generator. Is placed the pocket. Impedances were checked and found to be normal. I irrigated all wounds. I closed subcutaneous tissues with 2-0 Vicryl. Eyes closed skin with 4-0 Vicryl. Glue was applied. She was awakened transferred to PACU in stable condition Implants InterStim device Estimated Blood Loss 5 Drains No Packing No Pathology None sent Complications No immediate complications Condition Stable Disposition PACU
[2024-03-07] MEDS: MIDAZOLAM HCL (*CRX) 2 MG/2 ML VIAL IV PUSH (08:29)
--- NOTE | 2024-03-07 08:38 | SUR.PHASEII ---
0827: Rogelio LOPEZ called RN to bedside. Patient actively having seizure activity. Anesthesia team called to bedside. Versed 2mg given ivp. Patient placed on O2 6lpm via simple face mask. Patient condition is stabilizing. Noted that patient did not not have am home kepra dose. Kepra IVPB ordered.
[2024-03-07] MEDS: levETIRAcetam 500MG/NACL 100ML 500 MG/100 ML BAG 400 MG IVPB (08:43)
--- NOTE | 2024-03-07 08:47 | SUR.PHASEII ---
0835: Dr. Morfin called to bedside and made aware of patient condition.
--- NOTE | 2024-03-07 08:55 | SUR.PHASEII ---
0850: Seizure activity noted. Patient VSS. recovers quickly. Kepra has been administered.
--- NOTE | 2024-03-07 08:57 | SUR.PHASEII ---
0855: Dr. Morfin at bedside. No new orders.
== END 2024-03-07 09:55 | disposition home or self-care (01) ==
PROVIDERS: PCP Family Medicine; Visit Provider Urology
PROC: (CPT 64561; principal; 2024-03-07 07:30)
DX: N39.41 Urge incontinence (principal); R15.9 Full incontinence of feces; F90.9 Attention-deficit hyperactivity disorder, unspecified type; E53.8 Deficiency of other specified B group vitamins; F31.9 Bipolar disorder, unspecified; Z85.3 Personal history of malignant neoplasm of breast; N18.30 Chronic kidney disease, stage 3 unspecified; K21.9 Gastro-esophageal reflux disease without esophagitis; E78.5 Hyperlipidemia, unspecified; I12.9 Hypertensive chronic kidney disease with stage 1 through stage 4 chronic kidney disease, or unspecified chronic kidney disease; R73.03 Prediabetes
CPT/HCPCS: 64561; 64590; 99199; C1767; C1778; C1787; J0690; J1953; J2250; J2405; J2704; J3010; J7120

== ENCOUNTER → 2024-05-12 15:24 | Outpatient (CLI) | payer MEDICARE, SELFPAY ==
--- NOTE | ~2024-05-12 | XR_ITS ---
EXAMINATION: XR chest 2V Exam Date/Time: 05/12/2024 15:25 CONSTRUCTION JOB TITLES HISTORY: R05.9 - Cough, unspecified Comparison: 12/24/2023. RESULT: Lines, tubes, and devices: None. Lungs and pleura: Clear. Cardiomediastinal silhouette: Stable. Other: No acute osseous or upper abdominal finding. IMPRESSION: No acute cardiopulmonary process. Reviewed, dictated and finalized at location K. TRUCTION JOB TITLES
== END ==
LOC: EXPTRAD 15:25
PROVIDERS: PCP Nurse Practitioner Family; Visit Provider Nurse Practitioner Family
DX: R05.9 Cough, unspecified (principal)
CPT/HCPCS: 71046

== ENCOUNTER 2024-07-01 14:33 | Outpatient (CLI) | payer MEDICARE, SELFPAY ==
--- NOTE | ~2024-07-01 | CT_ITS ---
EXAMINATION: CT abdomen pelvis wo con DATE: 07/01/2024 15:04 INDICATION: Left lower quadrant abdominal pain. TECHNIQUE: Computed tomography (CT) of the abdomen and pelvis was performed without intravenous contr ast. Automated exposure control and iterative reconstruction technique were employed. The dose-length product was 568.16 mGy-cm. COMPARISON: 06/27/2019 FINDINGS: Minimal atelectasis/scarring at the lingula. Heart size is normal. Aortic valve calcification. No per icardial or pleural effusion. Again seen are few small low-attenuation hepatic cysts. The gallbladder , spleen, pancreas, bilateral adrenal glands and kidneys are normal. Moderate sigmoid diverticulosis. There is inflammatory stranding associated with several diverticula along the mid sigmoid colon cons istent with diverticulitis. No abscess or free intraperitoneal gas or fluid. No bowel obstruction. Th e appendix is not visualized. No pericecal inflammatory change to suggest acute appendicitis. Bladder is normal. The uterus is not identified and has likely been surgically resected. Sacral nerve root s timulator expected position with lead extending through the right S3 neural foramen. Severe lumbar an d moderate lower thoracic spondylosis. IMPRESSION: 1. Radiographically uncomplicated sigmoid diverticulitis. Reviewed, dictated and finalized at location B. INE INKER
[2024-07-01 15:03] LABS: Basophils Absolute Auto 0.1 K/mm3 (0.0-0.1); Basophils Percent Auto 0.8 % (0.2-1.2); Eosinophils Absolute Auto 0.2 K/mm3 (0-0.3); Eosinophils Percent Auto 2.7 % (0-4.4); Hematocrit 41.6 % (37.0-47.0); Hemoglobin 14.1 g/dL (12.0-15.0); Immature Granulocyte Absolute 0.03 K/mm3 (0.00-0.031); Immature Granulocyte Percent A 0.4 % (0-0.5); Lymphocytes Absolute Auto 2.63 K/mm3 (0.9-3.2); Mean Corpuscular HGB Conc 33.9 g/dl (32-36); Mean Corpuscular Hemoglobin 28.3 pg (26-34); Mean Corpuscular Volume 83.4 fl (80-100); Mean Platelet Volume 8.8 fl (7.4-10.4); Monocytes Absolute Auto 0.5 K/mm3 (0.1-0.6); Neutrophils Absolute Auto 3.9 K/mm3 (1.3-6.7); Neutrophils Percent Auto 53.1 % (45.5-73.1); Platelet Count Result 374 k/mm3 (150-375); Red Blood Count 4.99 M/mm3 (4.2-5.4); Red Cell Distribution Width 12.7 % (11.5-14.5); White Blood Count 7.3 K/mm3 (4.5-10.0)
[2024-07-01 15:08] LABS: Add Urine Microscopic? YES; Appearance Urine Clear (Clear); Bacteria Urine Rare /hpf; Bilirubin Urine Negative (Negative); Blood Urine Negative (Negative); Color Urine Yellow (Yellow); Glucose Urine UA Negative (Negative); Ketones Urine Negative (Negative); Leukocyte Esterase Ur 3+ LEU/UL (Negative); Nitrate Urine Negative (Negative); Non Pathogenic Casts 0-2; Protein Urine Negative (Negative); RBC Urine 0-2 /hpf (0-2); Specific Grav Ur 1.011 (1.001-1.035); Squamous Epithelial Cell Urine Few /hpf (Few); Urobilinogen Urine 0.2 mg/dL (<2.0); WBC Urine 51-100 /hpf (0-3)
[2024-07-01 15:42] LABS: Alanine Aminotransferase 17 U/L (6-35); Albumin Level 4.5 g/dL (3.5-5.1); Alkaline Phosphatase 112 U/L (38-126); Anion Gap 8 mmol/L (4-12); Aspartate Amino Transferase 27 U/L (14-36); Bilirubin,Total 0.9 mg/dL (0.2-1.3); Blood Urea Nitrogen 21 mg/dL (7-17); Calcium 9.5 mg/dL (8.4-10.2); Carbon Dioxide 30 mmol/L (22-30); Chloride 99 mmol/L (98-107); Estimated Glomerular Filt Rate 52; Glucose 94 mg/dL (65-110); Potassium 4.6 mmol/L (3.4-5.0); Sodium 137 mmol/L (137-145)
== END 2024-07-01 14:34 | disposition home or self-care (01) ==
PROVIDERS: PCP Nurse Practitioner Family; Visit Provider Nurse Practitioner Family
DX: K57.32 Diverticulitis of large intestine without perforation or abscess without bleeding (principal); R39.15 Urgency of urination; R53.83 Other fatigue; R10.30 Lower abdominal pain, unspecified; R10.32 Left lower quadrant pain; R10.2 Pelvic and perineal pain
CPT/HCPCS: 36415; 74176; 80053; 81001; 85025; 87086

== ENCOUNTER 2024-11-17 01:14 | Day surgery (SDC) | payer MEDICARE, SELFPAY ==
[2024-11-11 09:21] VITALS: BMI 32.1
--- OUTSIDE RECORDS SUMMARY | 2024-11-17 01:19 | XMS_ITS | Referral Summary ---
Author Organization [facility] [address] [facility] [address] Address [address] [place] [address] Care Team Providers Care Breakdown Worker Name Role Phone Chaitanya Hess MD Primary Care Provider [phone] Allergies Active Allergy Reactions Criticality Noted Date Comments Acetaminophen-Melatonin Vomiting Low 12/14/2023 Diphenhydramine Other (See comments) Low 08/19/2020 anxiety Medications Savella 100 mg tablet Take 200 mg by mouth nightly 0 Active spironolactone (ALDACTONE) 100 mg tablet Take 1 tablet (100 mg total) by mouth daily Active albuterol HFA (PROVENTIL HFA,VENTOLIN HFA,PROAIR HFA) 90 mcg/actuation inhaler INHALE 1 PUFF BY MOUTH EVERY 4 HOURS NEEDED FOR SHORTNESS OF BREATH OR WHEEZING 2 Active famotidine (PEPCID) 20 mg/10 mL 2 Active oxybutynin XL (DITROPAN-XL) 10 mg 24 hr tablet Take 1 tablet (10 mg total) by mouth daily 2 Active levothyroxine (SYNTHROID) 25 mcg tablet Take 25 mcg by mouth urology surgeon before breakfast Active nebivoloL (BYSTOLIC) 10 mg tabletIndications :Essential hypertension TAKE 1 TABLET(10 MG) BY MOUTH DAILY 90 tablet 3 Active allopurinoL (ZYLOPRIM) 100 mg tablet Take 1 tablet (100 mg total) by mouth daily Active DULoxetine DR (CYMBALTA) 60 mg capsule Take 1 capsule (60 mg total) by mouth daily Active levETIRAcetam (KEPPRA) 500 mg tablet Take 1 tablet (500 mg total) by mouth 2 (two) times a day 3 Active vibegron 75 mg tablet Take 75 mg by mouth daily Active busPIRone (BUSPAR) 7.5 mg tablet Take 1 tablet (7.5 mg total) by mouth 2 times daily 4 Active amoxicillin-clavu lanate (AUGMENTIN) 875-125 mg per tablet Take 1 tablet by mouth every 12 (twelve) hours Active rosuvastatin (CRESTOR) 10 mg tablet Take 1 tablet (10 mg total) by mouth daily Active Active Problems Problem Noted Date Diagnosed Date Shortness of breath 01/03/2022 Assessment & Plan (01/03/2022 11:26 AM CDT): Differential diagnosis of shortness of Breath includes asthma, COPD, organic heart disease, interstitial lung disease, pulmonary vascular disease, peripheral vascular disease, nerve or muscle disorders, arthritis, deconditioning, metabolic abnormalities, anemia, endocrinopathies Pulmonary function test, 6 minute walk, methacholine challenge Sample of Trelegy 100 Low clinical suspicion for cardiac ischemia, venous thromboembolism, interstitial lung disease, pulmonary vascular disease etcetera. Further recommendations pending re-evaluation Stage 3a chronic kidney disease 05/25/2021 Primary osteoarthritis of right knee 03/22/2021 Overview (01/03/2022): Last Assessment & Plan: The only thing proven to slow the progression of osteoarthritis is weight loss. Every pound lost relieves 4 to 6 pounds of stress across the knee. We discussed unloading braces. Formal physical therapy to help with flexibility, mobility and strength. We discussed TENS units. Patient has a h/o CKD, she is unable to take nonsteroidal anti-inflammatories medications. We discussed steroid versus Visco supplement injection. We discussed eventual total knee arthroplasty. We discussed the risks, benefits and alternatives. All questions were answered and informed consent is obtained. The right knee is prepped with alcohol and Betadine. Under sterile technique an 18-gauge needle was inserted to the medial patellofemoral joint and 42 milliliters of synovial fluid is aspirated. 80 mg of Depo-Medrol and 4 mL of bupivacaine 0.5% plain are instilled. Patient tolerated the procedure well without adverse effects. Area is cleansed and a Band-Aid is placed. Seronegative rheumatoid arthritis 03/21/2021 Fibromyalgia 01/17/2021 Inflammatory arthritis 01/17/2021 Polyneuropathy 01/05/2021 Spinal stenosis of lumbar re gion without neurogenic claudication 01/05/2021 Acquired hypothyroidism 12/23/2020 Assessment & Plan (05/10/2021 1:41 PM JUDICIAL ADMINISTRATIVE ASSISTANT): Continue levothyroxine for another 6 months a low-dose of 25 mcg daily. I advised patient to keep a journal of her symptoms Will reassess in 6 months and will decide if she wants to continue the medication or not Assessment & Plan (12/23/2020 4:28 PM CDT): The patient has subclinical hypothyroidism, with normal free T4 and mildly elevated TSH I explained to the patient that the very often this is a condition that does not need treatment Since she has multiple symptoms will try start low-dose of levothyroxine e.g. 25 mcg daily, hoping to help her some of her symptoms I have also given a lab request for TFTs to be done in 2 months Hypokalemia 08/18/2020 Other chest pain 08/06/2020 Diastolic CHF 07/23/2020 History of breast cancer 07/03/2019 Breast pain 07/03/2019 Nipple discharge in female 07/03/2019 History of antineoplastic chemotherapy 8 History of external beam radiation therapy 12/14 Hormone replacement therapy 12/14/2017 Malignant neoplasm of lower- outer quadrant of left breast of female, estrogen receptor negative 12/14/2017 PFO (patent foramen ovale) 06/04/2017 Assessment & Plan (07/09/2017 9:52 AM JUDICIAL ADMINISTRATIVE ASSISTANT): I reviewed the echocardiogram by myself and shows normal right atrium and right ventricular size. Normal right ventricle function. There were a few bubbles crossing with Valsalva maneuver. Likely PFO. Continue to observe. Assessment & Plan (06/04/2017 11:24 AM JUDICIAL ADMINISTRATIVE ASSISTANT): Will obtain limited echocardiogram to assess if the patient has ASD or PFO. Localized edema 06/04/2017 Assessment & Plan (03/11/2018 3:09 PM CDT): Bilateral lower extremity edema. Patient has varicose veins. This could be a side effect from testosterone and progesterone. Assessment & Plan (07/09/2017 9:53 AM JUDICIAL ADMINISTRATIVE ASSISTANT): Likely a side effect from for just own and testosterone therapy. Continue diuretics and potassium supplements. Continue magnesium supplements as well. Assessment & Plan (06/04/2017 11:25 AM JUDICIAL ADMINISTRATIVE ASSISTANT): Will obtain venous duplex ultrasound of the left leg to rule out DVT. Patient has varicose vein in the left leg as well. Essential hypertension 06/04/2017 Assessment & Plan (03/11/2018 3:08 PM CDT): Blood pressure is controlled. Continue current treatment Assessment & Plan (07/09/2017 9:52 AM JUDICIAL ADMINISTRATIVE ASSISTANT): Blood pressure is controlled. Continue current medications. Assessment & Plan (06/04/2017 11:25 AM JUDICIAL ADMINISTRATIVE ASSISTANT): Blood pressure is controlled. Continue current treatment Mixed hyperlipidemia 06/04/2017 Assessment & Plan (03/11/2018 3:09 PM CDT): Continue Crestor. Lipid panel today is well controlled. Assessment & Plan (06/04/2017 11:25 AM JUDICIAL ADMINISTRATIVE ASSISTANT): Patient will bring her lipid panel next visit. He had her labs checked recently at primary care doctor Dyspnea on exertion 06/04/2017 Assessment & Plan (03/11/2018 3:10 PM CDT): Stress test shows no ischemia. Normal systolic function. Positive family history for coronary artery disease. I asked the patient to talk to her tooling manager in regards to discontinuing hormone replacement therapy because it can increase risk for myocardial infarction and DVT. Assessment & Plan (07/09/2017 9:51 AM JUDICIAL ADMINISTRATIVE ASSISTANT): Very strong family history for coronary artery disease. She is symptomatic. Will arrange for exercise nuclear stress test to rule out ischemia. She does have grade 1 diastolic dysfunction on echocardiogram. Assessment & Plan (06/04/2017 11:26 AM JUDICIAL ADMINISTRATIVE ASSISTANT): Will re-evaluate next visit after we obtain the echocardiogram. She does have strong family history for coronary artery disease. Reassess Nausea 03/30/2016 Anxiety 05/06/2015 Malignant neoplasm of overla pping sites of left female breast 04/08/2015 Social History Tobacco Use Types Packs/Day Years Used Date Smoking Tobacco: Never Smokeless Tobacco: Never Alcohol Use Standard Drinks/Week Comments No 0 (1 standard drink = 0.6 oz pur e alcohol) PHQ-2 Answer Date Recorded PHQ-2 Total Score (If total score is 3 or more points, staff should administer the PHQ-9) 2 05/10/2021 Personal Safety Answer Date Recorded Getting School Help Needed Not on file 06/12 Comments No Sex and Gender Information Value Date Recorded Sex Assigned at Not on file Legal Sex Female 3:32 AM JUDICIAL ADMINISTRATIVE ASSISTANT Gender Identity Female 06/20/2019 1:58 PM JUDICIAL ADMINISTRATIVE ASSISTANT Sexual Orientation Not on file Last Filed Vital Signs Vital Sign Reading Time Taken Comments Blood Pressure 135/65 01/03/2022 11:09 AM CDT Pulse 83 01/03/2022 11:09 AM CDT Temperature 36.8 C (98.3 F) 01/03/2022 11:09 AM CDT Respiratory Rate 12 05/10/2021 1:06 PM JUDICIAL ADMINISTRATIVE ASSISTANT Oxygen Saturation 96% 01/03/2022 11:09 AM CDT Inhaled Oxygen Concentration - - Weight 83.9 kg (185 lb) 01/03/2022 11:09 AM CDT Height 162.6 cm (5' 4) 01/03/2022 11:09 AM CDT Body Mass Index 31.76 01/03/2022 11:09 AM CDT Plan of Treatment Not on file Procedures Procedure Name Priority Date/Time Associated Diagnosis Comments DIAGNOSTIC MAMMOGRAM BILATERAL W CASSIUS Schedule Routine, Read Routine (OP Routine) 07/03/2019 10:01 AM JUDICIAL ADMINISTRATIVE ASSISTANT Disorder of breast, unspecified Axillary lump, left from Last 3 Months or Most Recently Relevant to Health Maintenance Results * Diagnostic Mammogram Bilateral W Cassius (07/03/2019 10:01 AM JUDICIAL ADMINISTRATIVE ASSISTANT) Anatomical Region Laterality Modality Breast Bilateral Mammography 07/03/2019 11:0 7 AM JUDICIAL ADMINISTRATIVE ASSISTANT Impressions 07/03/2019 11:20 AM JUDICIAL ADMINISTRATIVE ASSISTANT 1. No suspicious abnormality in EITHER breast. Recommend continued clinical follow-up for the patient's reported RIGHT nipple discharge. 2. No suspicious abnormality in the LEFT axilla to correspond to the palpable area of concern. Recommend continued clinical follow-up. OVERALL FINAL ASSESSMENT: BI-RADS Category 1: Negative. Continued clinical follow-up is recommended. Annual screening mammography is recommended. Dictated by: Chelo Sanchez M.D. The radiology attending physician has personally reviewed this study, and had reviewed and/or edited this written report and agrees with it. Electronically signed by: NEELIMA WILKINS MD Narrative 07/03/2019 11:20 AM JUDICIAL ADMINISTRATIVE ASSISTANT EXAMINATION: BILATERAL DIGITAL DIAGNOSTIC MAMMOGRAM INCLUDING CAD AND BILATERAL DIGITAL BREAST TOMOSYNTHESIS; RIGHT BREAST SONOGRAM; LEFT AXILLARY SONOGRAM HISTORY: 68-year-old woman with personal history of invasive ductal carcinoma in the LEFT breast status post breast conservation therapy in 2014 who presents with a palpable abnormality in the LEFT axilla for 3 weeks which is not as evident today, and spontaneous intermittent clear RIGHT nipple discharge for one year. COMPARISON: Prior available studies dating back to 12/21/2016. TECHNIQUE: Full field digital mammographic views of BOTH breasts were performed, including computer aided detection (CAD) and BILATERAL digital breast tomosynthesis (DBT). Directed ultrasound evaluation of the RIGHT breast and the LEFT axilla was performed. BREAST PARENCHYMAL COMPOSITION: The breasts are heterogenously dense, which may obscure small masses. MAMMOGRAM FINDINGS: There are stable changes of breast conservation therapy in the LEFT breast. There is no new suspicious abnormality in EITHER breast. Specifically, there is no suspicious abnormality to correspond to the palpable abnormality in the LEFT axilla designated by a triangular skin marker. SONOGRAM FINDINGS: Targeted sonogram of the palpable abnormality in the LEFT axilla was performed. No focal abnormal solid or cystic lesion suggestive of malignancy is identified. Targeted sonogram of the subareolar RIGHT breast was performed. No focal abnormal solid or cystic lesion suggestive of malignancy is identified. Procedure Note Neelima Wilkins MD - 07/03/2019 EXAMINATION: BILATERAL DIGITAL DIAGNOSTIC MAMMOGRAM INCLUDING CAD AND BILATERAL DIGITAL BREAST TOMOSYNTHESIS; RIGHT BREAST SONOGRAM; LEFT AXILLARY SONOGRAM HISTORY: 68-year-old woman with personal history of invasive ductal carcinoma in the LEFT breast status post breast conservation therapy in 2014 who presents with a palpable abnormality in the LEFT axilla for 3 weeks which is not as evident today, and spontaneous intermittent clear RIGHT nipple discharge for one year. COMPARISON: Prior available studies dating back to 12/21/2016. TECHNIQUE: Full field digital mammographic views of BOTH breasts were performed, including computer aided detection (CAD) and BILATERAL digital breast tomosynthesis (DBT). Directed ultrasound evaluation of the RIGHT breast and the LEFT axilla was performed. BREAST PARENCHYMAL COMPOSITION: The breasts are heterogenously dense, which may obscure small masses. MAMMOGRAM FINDINGS: There are stable changes of breast conservation therapy in the LEFT breast. There is no new suspicious abnormality in EITHER breast. Specifically, there is no suspicious abnormality to correspond to the palpable abnormality in the LEFT axilla designated by a triangular skin marker. SONOGRAM FINDINGS: Targeted sonogram of the palpable abnormality in the LEFT axilla was performed. No focal abnormal solid or cystic lesion suggestive of malignancy is identified. Targeted sonogram of the subareolar RIGHT breast was performed. No focal abnormal solid or cystic lesion suggestive of malignancy is identified. IMPRESSION: 1. No suspicious abnormality in EITHER breast. Recommend continued clinical follow-up for the patient's reported RIGHT nipple discharge. 2. No suspicious abnormality in the LEFT axilla to correspond to the palpable area of concern. Recommend continued clinical follow-up. OVERALL FINAL ASSESSMENT: BI-RADS Category 1: Negative. Continued clinical follow-up is recommended. Annual screening mammography is recommended. Dictated by: Chelo Sanchez M.D. The radiology attending physician has personally reviewed this study, and had reviewed and/or edited this written report and agrees with it. Electronically signed by: NEELIMA WILKINS MD Klaudia Belcher MD PhD IMG MAMMO PROCEDURES Final Result from Last 3 Months or Most Recently Relevant to Health Maintenance Insurance [facility] MEDICARE ADVANTAGE AET MEDICARE AEST. [facility] MEDICARE Care Teams Breakdown Worker Relationship Specialty Start Date End Date Chaitanya Hess MD [address] [id number] PCP - General Family Medicine 11/05/20
--- OUTSIDE RECORDS SUMMARY | 2024-11-17 01:19 | XMS_ITS ---
Author Organization [facility] [employer] [facility] Address [address] [place] [id number] Care Team Providers Care Box Puller Name Role Phone Bren Andre APN Primary Care Provider Rody Villa Unavailable [phone] REASON FOR VISIT F/u Social History Sex Assigned At : Social History Observation Description Sex Assigned At Female [facility]ters En[facility] [address] [address] [facility]/30[facility]24 Rody Ge Plan Of Treatment No Information Progress Notes * MICHAEL VIZCARRA PDOB:[birth year] (73 yo F)Acc No.[id number]:09/30/2024 Patient: Siomara SAL MICHAEL Abraham Provider: WILSON RODRIGUEZ :1950 A ge:73 Y S ex:Female Date:09/30/2024 Address:[address] [place], [place] [id number] Pcp:Bren Andre APN Subjective: * Chief Complaints: * 1 . F/u. * Medical History: Objective: * Vitals: Assessment: Plan: * Treatment: * Billing Information: * Visit Code: * Procedure Codes: * Electronic signature of WILSON Reddy on 11/17/2024 at 01:19 AM CDT Sign off status: Pending * Provider: WILSON RODRIGUEZ Date: 0 09/30/2024 Generated for Maria R ellis/Dalia/Yovany on: 0 11/17/2024 01:19 AM CDT
--- OUTSIDE RECORDS SUMMARY | 2024-11-17 01:19 | XMS_ITS | Clinical Summary ---
Author Organization [facility] Address [address] [place] [address] Care Team Providers Care Vp Informatics Name Role Phone Jonah Corcoran MD Primary Care Provider [phone] Allergies No known active allergies Medications nebivolol (BYSTOLIC) 10 mg Tablet 5 Active ascorbate calcium/bioflavon oid (KAY-C WITH BIOFLAVONOIDS ORAL) Apply to skin as directed. Active ergocalciferol (VITAMIN D2) 50,000 unit capsule Take 50,000 Units by mouth. Active bumetanide (BUMEX) 1 mg tablet Take 1 mg by mouth. Active furosemide (LASIX) 80 mg tablet Take 80 mg by mouth. Active potassium chloride (KLOR-CON) 20 mEq Extended Release tablet Take 20 mEq by mouth. Active pramipexole (MIRAPEX) 1 mg Tablet Take 1 mg by mouth. Active progesterone micronized (PROMETRIUM) 200 mg Capsule Take 200 mg by mouth. Active testosterone 30 mg/actuation (1.5 mL) Solution in Metered Pump w/Zoila Apply 30 mg to skin as directed. Active lamoTRIgine (LaMICtal) 200 mg tablet TK 1 T PO QHS 2 9 Active aspirin (ECOTRIN EC) 81 mg Tablet, Delayed Release (E.C.) Take 81 mg by mouth. Active VITAMIN D3 2,000 unit Capsule TK 1 C PO D 1 9 Active gabapentin (NEURONTIN) 100 mg capsule Take by mouth. 2 Active LINZESS 72 mcg Capsule capsule TK ONE C PO QD OES AT LEAST 30 MINUTES B FIRST MEAL OF THE DAY 5 9 Active VYVANSE 40 mg capsule TK ONE C PO QD IN THE MORNING 0 9 Active MYRBETRIQ 25 mg Extended Release 24 hour tablet TK 1 T PO QD SWALLOWING WHOLE WITH WATER 1 9 Active Phentermine 37.5 mg Capsule TK ONE C PO D B BREAKFAST 2 9 Active rosuvastatin (CRESTOR) 20 mg tablet TK 1 T PO QD 1 9 Active Active Problems Problem Noted Date Diagnosed Date Nipple discharge 06/28/2018 History of antineoplastic chemotherapy 8 Malignant neoplasm of lower- outer quadrant of left breast of female, estrogen receptor negative 12/14/2017 Hormone replacement therapy 12/14/2017 History of external beam radiation therapy 12/14 Family History Medical History Relation Name Comments Cancer Brother prostate Cancer Father prostate Lung Cancer Father at 86 Cancer Paternal Uncle prostate Breast Cancer Sister 1 Breast Cancer Sister 2 Relation Name Status Comments Brother Alive Father Paternal Uncle Sister 1 Sister 2 Social History Tobacco Use Types Packs/Day Years Used Date Smoking Tobacco: Never Smokeless Tobacco: Never Alcohol Use Standard Drinks/Week Comments No 0 (1 standard drink = 0.6 oz pur e alcohol) Comments No Sex and Gender Information Value Date Recorded Sex Assigned at Not on file Legal Sex Female 1:28 PM CDT Gender Identity Not on file Sexual Orientation Not on file Last Filed Vital Signs Vital Sign Reading Time Taken Comments Blood Pressure 100/55 12/25/2018 1:50 PM CDT Pulse 78 12/25/2018 1:50 PM CDT Temperature 36.7 C (98.1 F) 12/25/2018 1:50 PM CDT Respiratory Rate - - Oxygen Saturation 97% 12/25/2018 1:50 PM CDT Inhaled Oxygen Concentration - - Weight 80.7 kg (178 lb) 12/25/2018 1:50 PM CDT Height 162.6 cm (5' 4) 12/25/2018 1:50 PM CDT Body Mass Index 30.55 12/25/2018 1:50 PM CDT Plan of Treatment Health Maintenance Due Date Last Done Comments DTAP/TDAP/TD VACCINES (1 - Tdap) 12/06/1971 COLORECTAL SCREENING 1997 Colorectal Cancer Screening 1997 FIT-DNA Q 3 years 1997 FIT/FOBT Q 1 year 1997 Flex Sig/CT Colonography Q 5 years 1997 PNEUMOCOCCAL VACCINE 50+ YEA RS (1 of 1 - PCV) 2002 ZOSTER VACCINE (1 of 2) 2002 RSV VACCINE (60+ or ) (1 - Risk 60-74 years 1-dose series) 2012 BREAST CANCER SCREENING 03/16/2023 03/16/20 22, 03/16/2022, 07/03/2019, Additional history exists INFLUENZA VACCINE (#1) 2024 COVID-19 Vaccine (2 - 2023-2 5 season) 2024 08/13/2020 OSTEOPOROSIS SCREENING 03/16/2027 03/16/2022, 2021 Procedures Procedure Name Priority Date/Time Associated Diagnosis Comments MAMMOGRAM REPORT Routine 12/16/2018 from Last 3 Months or Most Recently Relevant to Health Maintenance Results * MAMMOGRAM REPORT (12/16/2018) us Abstract Provider MAMMO ORDERABLES Edited Result - Final [facility] from Last 3 Months or Most Recently Relevant to Health Maintenance Insurance [facility] [id number] Care Teams Vp Informatics Relationship Specialty Start Date End Date Jonah Corcoran MD [address] [place] [address] PCP - General Internal Medicine 12/13/17
--- OUTSIDE RECORDS SUMMARY | 2024-11-17 01:19 | XMS_ITS | Clinical Summary ---
Author Organization [facility] [address] [facility] [address] Address [address] [place] [address] Care Team Providers Care [employer] Officer Name Role Phone Chaitanya Hess MD Primary Care Provider [phone] Allergies Active Allergy Reactions Criticality Noted Date [...] mcg tablet Take 25 mcg by mouth social sciences department chair before breakfast Active nebivoloL (BYSTOLIC) 10 mg [...] 12/23/2020 Assessment & Plan (05/10/2021 1:41 PM HAND MICA PLATE LAYER): Continue levothyroxine for another 6 months a [...] 06/04/2017 Assessment & Plan (07/09/2017 9:52 AM HAND MICA PLATE LAYER): I reviewed the echocardiogram by myself and shows normal right atrium and right ventricular size. Normal right ventricle function. There were a few bubbles crossing with Valsalva maneuver. Likely PFO. Continue to observe. Assessment & Plan (06/04/2017 11:24 AM HAND MICA PLATE LAYER): Will obtain limited echocardiogram to assess if the patient has ASD or PFO. Localized edema 06/04/2017 Assessment & Plan (03/11/2018 3:09 PM CDT): Bilateral lower extremity edema. Patient has varicose veins. This could be a side effect from testosterone and progesterone. Assessment & Plan (07/09/2017 9:53 AM HAND MICA PLATE LAYER): Likely a side effect from for just own and testosterone therapy. Continue diuretics and potassium supplements. Continue magnesium supplements as well. Assessment & Plan (06/04/2017 11:25 AM HAND MICA PLATE LAYER): Will obtain venous duplex ultrasound of the left leg to rule out DVT. Patient has varicose vein in the left leg as well. Essential hypertension 06/04/2017 Assessment & Plan (03/11/2018 3:08 PM CDT): Blood pressure is controlled. Continue current treatment Assessment & Plan (07/09/2017 9:52 AM HAND MICA PLATE LAYER): Blood pressure is controlled. Continue current medications. Assessment & Plan (06/04/2017 11:25 AM HAND MICA PLATE LAYER): Blood pressure is controlled. Continue current treatment Mixed hyperlipidemia 06/04/2017 Assessment & Plan (03/11/2018 3:09 PM CDT): Continue Crestor. Lipid panel today is well controlled. Assessment & Plan (06/04/2017 11:25 AM HAND MICA PLATE LAYER): Patient will bring her lipid panel next visit. He had her labs checked recently at primary care doctor Dyspnea on exertion 06/04/2017 Assessment & Plan (03/11/2018 3:10 PM CDT): Stress test shows no ischemia. Normal systolic function. Positive family history for coronary artery disease. 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 Assessment & Plan (07/09/2017 9:51 AM HAND MICA PLATE LAYER): Very strong family history for coronary artery disease. She is symptomatic. Will arrange for exercise nuclear stress test to rule out ischemia. She does have grade 1 diastolic dysfunction on echocardiogram. Assessment & Plan (06/04/2017 11:26 AM HAND MICA PLATE LAYER): Will re-evaluate next visit after we obtain the echocardiogram. She does have strong family history for coronary artery disease. Reassess Nausea 03/30/2016 Anxiety 05/06/2015 Malignant neoplasm of overla pping sites of left female breast 04/08/2015 Surgical History Surgery Date Site/Laterality Comments HYSTERECTOMY APPENDECTOMY Medical History Medical History Date Comments Hypertension Diverticulitis Anxiety and depression Breast cancer (HCC) Hyperlipidemia Stroke (HCC) Family History Medical History Relation Name Comments Prostate cancer Brother 1 Bone cancer Father Lung cancer Father Prostate cancer Father Heart failure Mother Prostate cancer Mother's Brother 1 Lung cancer Mother's Brother 2 Breast cancer Sister 1 Breast cancer Sister 2 Aneurysm Sister 3 Relation Name Status Comments Brother 1 Alive Brother 2 Alive Father (Age 86) Mother (Age 74) Mother's Brother 1 Mother's Brother 2 Sister 1 Alive 70 Sister 2 (Age 62) Sister 3 (Age 57) Social History Tobacco Use Types Packs/Day Years [...] on file Legal Sex Female 3:32 AM HAND MICA PLATE LAYER Gender Identity Female 06/20/2019 1:58 PM HAND MICA PLATE LAYER Sexual Orientation Not on file Obstetrics History Last Filed Vital Signs Vital Sign Reading Time Taken Comments Blood Pressure 135/65 01/03/2022 11:09 AM CDT Pulse 83 01/03/2022 11:09 AM CDT Temperature 36.8 C (98.3 F) 01/03/2022 11:09 AM CDT Respiratory Rate 12 05/10/2021 1:06 PM HAND MICA PLATE LAYER Oxygen Saturation 96% 01/03/2022 11:09 AM CDT Inhaled Oxygen Concentration - - Weight 83.9 kg (185 lb) 01/03/2022 11:09 AM CDT Height 162.6 cm (5' 4) 01/03/2022 11:09 AM CDT Body Mass Index 31.76 01/03/2022 11:09 AM CDT Plan of Treatment Health Maintenance Due Date Last Done Comments Colon Cancer Screening-Colonoscopy 1950 Fall Risk Assessment 1950 Hepatitis C Screening 1950 DTaP/Tdap/Td Vaccine (1 - Tdap) 12/06/1963 Hepatitis B Screening 1970 Pneumococcal vaccine 65+ (1 of 1 - PCV) 2002 Zoster Vaccine (1 of 2) 2002 Well Visit 65+ 2017 Depression Screening 05/10/2022 05/10/2021 Breast Cancer Screening-Mammogram 03/16/2023 03/16/2022, 03/16/2022, 03/16/2022, Additional history exists Covid-19 Vaccine (4 - 2023-2 5 season) 2024 03/17/2021, 09/10/2020, 08/13/2020 Osteoporosis Screening-Bone Density Scan 03/16/2024 03/16/2022 Influenza Vaccine (Season Ended) 2025 Procedures Procedure Name Priority Date/Time Associated Diagnosis Comments DIAGNOSTIC MAMMOGRAM BILATERAL W CASSIUS Schedule Routine, Read Routine (OP Routine) 07/03/2019 10:01 AM HAND MICA PLATE LAYER Disorder of breast, unspecified Axillary lump, left from Last 3 Months or Most Recently Relevant to Health Maintenance Results * Diagnostic Mammogram Bilateral W Cassius (07/03/2019 10:01 AM HAND MICA PLATE LAYER) Anatomical Region Laterality Modality Breast Bilateral Mammography 07/03/2019 11:0 7 AM HAND MICA PLATE LAYER Impressions 07/03/2019 11:20 AM HAND MICA PLATE LAYER 1. No suspicious abnormality in EITHER breast. [...] NEELIMA WILKINS MD Narrative 07/03/2019 11:20 AM HAND MICA PLATE LAYER EXAMINATION: BILATERAL DIGITAL DIAGNOSTIC MAMMOGRAM INCLUDING CAD [...] Most Recently Relevant to Health Maintenance Insurance [facility] MEDICARE ADVANT[facility] MEDICARE Address: [facility] [address] [id number] T MEDICARE T MEDICARE Care Teams Army Officer Relationship Specialty Start Date End Date Chaitanya Hess MD [address] [address] PCP - General Family Medicine 11/05/20
--- OUTSIDE RECORDS SUMMARY | 2024-11-17 01:20 | XMS_ITS ---
Author Organization [facility] Address [address] [place] [address] Phone Care Team Providers Care Continuous Improvement Specialist Name Role Phone Jonah Corcoran MD Unavailable [phone] Active Problems Patient Care Coordination No te Formatting of this note migh t be different from the original. ~~ OF October 23, 2018 PATIENT DOES NOT QUALIFY FOR OCM~~NO TX~~ Problem Noted Date Diagnosed Date Nausea 03/30/2016 Anxiety 05/06/2015 Malignant neoplasm of overla pping sites of left female breast 04/08/2015 Current Treatment and Therapy Plans No current plan information found. Past Treatment and Therapy Plans ONCOLOGY TREATMENT Plan Name Start Date Discontinue Date Treatment Medications Discontinue Reason Plan Provider Cycles BREAST - ADJUVANT - CARBOPLATIN + DOCETAXEL - Q3W 04/08/20 15 08/12/2020 CARBOplatin (PARAPLATIN) chemo infusion (by AUC)DOCEtaxel (TAXOTERE) chemo infusion Plan Clean Up Brigitte Ramirez MD 6 (7 of 7 cycles) started Resolved Problems Problem Noted Date Diagnosed Date Resolved Date Anemia associated with chemotherapy 07/01/2015 12/01/2015 Bone pain due to granulocyte colony stimulating factor 05/06/2015 12/01/2015 Encounter for education 04/22/201511/16
--- OUTSIDE RECORDS SUMMARY | 2024-11-17 01:20 | XMS_ITS | Clinical Summary ---
Author Organization [facility] Address [address] [place] [address] Phone Care Team Providers Care Leather Grader Name Role Phone Jonah Corcoran MD Unavailable [phone] Allergies No known active allergies Medications BYSTOLIC 10 MG Tablet 2 5 Active Progesterone Micronized 200 MG Capsule 200 mg. 4 6 Active Estradiol-Estrio l-Progesterone (BIEST/PROGESTER ONE) Cream by Transdermal route. Active prochlorperazine (COMPAZINE) 10 MG TabletIndication s:Malignant neoplasm of overlapping sites of left female breast (HCC) TAKE 1 TABLET BY MOUTH EVERY 6 HOURS NEEDED FOR NAUSEA 30 Tab 6 7 Active Additional Information Patient not taking.Reported on 10/24/2018 bumetanide (BUMEX) 1 MG Tablet Take 1 mg by mouth. Active ergocalciferol (VITAMIN D) 56489 UNIT Capsule Take 50,000 Units by mouth. Active furosemide (LASIX) 80 MG Tablet Take 80 mg by mouth. Active pramipexole (MIRAPEX) 1 MG Tablet Take 1 mg by mouth. Active rosuvastatin (CRESTOR) 20 MG Tablet Take 20 mg by mouth. Active Testosterone 30 MG/ACT Solution by Transdermal route. Active QUEtiapine Fumarate (SEROQUEL) 50 MG Tablet Take 50 mg by mouth nightly. Active LamoTRIgine 200 MG TABLET SR 24 HR 200 mg. Active potassium chloride SA (KLORCON M) 20 MEQ Tablet Controlled Release Take 20 mEq by mouth. Active Lisdexamfetamine Dimesylate (VYVANSE) 20 MG Capsule Take 20 mg by mouth daily. Active Active Problems Patient Care Coordination No te Formatting of this note migh t be different from the original. ~~ OF October 23, 2018 PATIENT DOES NOT QUALIFY FOR OCM~~NO TX~~ Problem Noted Date Diagnosed Date Nausea 03/30/2016 Anxiety 05/06/2015 Malignant neoplasm of overla pping sites of left female breast 04/08/2015 Resolved Problems Problem Noted Date Diagnosed Date Resolved Date Anemia associated with chemotherapy 07/01/2015 12/01/2015 Bone pain due to granulocyte colony stimulating factor 05/06/2015 12/01/2015 Encounter for education 04/22/201511/16 Family History Medical History Relation Name Comments Diabetes Brother 1 Hypertension Brother 2 Prostate Cancer Brother 3 Cancer Father lung, bone mets Heart Disease Father Heart Disease Mother Hypertension Mother Tuberculosis Mother Breast Cancer Sister 1 shared father Breast Cancer Sister 2 shared father Relation Name Status Comments Brother 1 Brother 2 Brother 3 Father Mother Sister 1 Sister 2 Social History Tobacco Use Types Packs/Day Years Used Date Smoking Tobacco: Never Smokeless Tobacco: Never Alcohol Use Standard Drinks/Week Comments No 0 (1 standard drink = 0.6 oz pur e alcohol) PHQ-2 Answer Date Recorded PHQ-2 Score 0 03/01/2019 Comments Unknown Sex and Gender Information Value Date Recorded Sex Assigned at Not on file Legal Sex Female 11:40 PM CDT Gender Identity Not on file Sexual Orientation Not on file Last Filed Vital Signs Vital Sign Reading Time Taken Comments Blood Pressure 128/74 10/24/2018 2:22 PM CDT Pulse 71 10/24/2018 2:22 PM CDT Temperature 36.8 C (98.2 F) 10/24/2018 2:22 PM CDT Respiratory Rate - - Oxygen Saturation 97% 10/24/2018 2:22 PM CDT Inhaled Oxygen Concentration - - Weight 80.7 kg (178 lb) 10/24/2018 2:22 PM CDT Height 162.6 cm (5' 4) 09/07/2016 9:42 AM CDT Body Mass Index 30.55 09/07/2016 9:42 AM CDT Plan of Treatment Health Maintenance Due Date Last Done Comments Hepatitis C Virus (HCV) Screening 1950 TdaP Immunization 1950 Pneumococcal Immunization (5 0+ years) (1 of 2 - PCV) 12/06/1971 Zoster Immunization (1 of 2) 12/06/1971 Colonoscopy 1997 Colorectal Cancer Screening 1997 Cologuard 2002 Immunochemical Fecal Occult Blood 2002 Mammogram 12/12/2018 12/12/2017 SARS-COV-2 Immunization ( season) 2024 03/17/2021, 09/10/2020, 08/13/2020 Influenza Immunization (Seas on Ended) 2025 Respiratory Syncytial Virus (RSV) Immunization (Adult) (1 - 1-dose 75+ series) 12/06/2027 Hepatitis B Immunization Aged Out No longer eligible based on patient's age to complete this topic Meningococcal Immunization (ACWY) Aged Out No longer eligible b ased on patient's age to complete this topic Rotavirus Immunization Aged Out No lo nger eligible based on patient's age to complete this topic Insurance [facility] on file Care Teams Leather Grader Relationship Specialty Start Date End Date Jonah Corcoran MD [address] [place] [address] Internal Medicine 04/08/15
--- OUTSIDE RECORDS SUMMARY | 2024-11-17 01:20 | XMS_ITS | Data Portability ---
Author Organization [facility], Main Office Address [address] [place] [address] Assessment No assessment recorded. Plan of Treatment Reminders Order Date Submit Date Provider Last Modified By Organization Details Last Modified Time Details Appointments None record ed. Lab None record ed. Referral None record ed. Procedures None record ed. Surgeries None record ed. Imaging None record ed. Medication Orders None record ed. Patient TargetsNo targets recorded. Patient InstructionsNo instructions recorded. Reason for Referral None Reported. Medical Equipment None Reported. Medications Name Sig Start Date Stop Date Status Note LastModified by Organization Details LastModified Time silver sulfadiazine 1 % topical cream APPLY TOPICALLY TO THE AFFECTED AREA DAILY active Not Available Not Available N ot Available BD Insulin Syringe 1 mL 25 x 1 USE DIRECTED. active Not Available Not Available No t Available oxybutynin chloride ER 10 mg tablet,exten ded release 24 hr TAKE 1 TABLET BY MOUTH DAILY active Not Available Not Available Not Available ofloxacin 0.3 % eye drops active Not Available Not Available Not Available hydrocodone 5 mg-acetamino phen 325 mg tablet TAKE 1 TO 2 TABLETS BY MOUTH EVERY 4 TO 6 HOURS FOR MILD PAIN active Not Available Not Available No t Available prednisone 20 mg tablet TAKE 2 TABLETS BY MOUTH DAILY FOR 5 DAYS active Not Available Not Available N ot Available spironolacto ne 100 mg tablet active Not Available Not Available Not Available metolazone 5 mg tablet TAKE 1 TABLET BY MOUTH DAILY active Not Available Not Available Not Available Klor-Con 20 mEq oral packet DISSOLVE 2 PACKETS IN LIQUID AND TAKE BY MOUTH DAILY active Not Available Not Available Not Available ciprofloxaci n 500 mg tablet TAKE 1 TABLET BY MOUTH TWICE DAILY active Not Available Not Available No t Available leflunomide 20 mg tablet TAKE 1 TABLET BY MOUTH EVERY DAY active Not Available Not Available No t Available spironolacto ne 25 mg tablet active Not Available Not Available Not Available levothyroxin e 25 mcg tablet active Not Available Not Available Not Available ketorolac 0.5 % eye drops active Not Available Not Available Not Available prednisone 10 mg tablets in a dose pack Take 1 tab by mouth, 3 times a day for 3 daysTake 1 tab by mouth 2 times a day for 2 daysTake 1 tab by mouth once a day for 1 day active Not Available Not Available No t Available oxycodone-ac etaminophen 5 mg-325 mg tablet TAKE 1 OR 2 TABLETS BY MOUTH EVERY 4 TO 6 HOURS NEEDED FOR PAIN active Not Available Not Available No t Available alprazolam 0.25 mg tablet TAKE 1 TABLET BY MOUTH TWICE DAILY NEEDED FOR ANXIETY active Not Available Not Available No t Available famotidine 20 mg tablet TAKE 1 TABLET BY MOUTH TWICE DAILY active Not Available Not Available No t Available prednisolone acetate 1 % eye drops,suspen mary active Not Available Not Available Not Available furosemide 80 mg tablet TAKE 1 TABLET BY MOUTH DAILY active Not Available Not Available Not Available Kenalog 10 mg/mL suspension for injection In office injection administere d by the provider active [facility]: 0003- 0494- 20 Not Available Not Available Not Available cyanocobalam in (vit B-12) 1,000 mcg/mL injection solution INJECT 1000 MG IN THE MUSCLE WEEKLY FOR 4 WEEKS. THEN INJECT 1000 MG MONTHLY ONWARDS active Not Available Not Available No t Available gabapentin 300 mg capsule TAKE 1 CAPSULE BY MOUTH THREE TIMES DAILY active Not Available Not Available Not Available folic acid 1 mg tablet TAKE 1 TABLET BY MOUTH EVERY DAY active Not Available Not Available No t Available furosemide 20 mg tablet active Not Available Not Available Not Available hydroxychlor oquine 200 mg tablet TAKE 2 TABLETS BY MOUTH EVERY DAY active Not Available Not Available No t Available estradiol 0.01% (0.1 mg/gram) vaginal cream USE 2 GRAMS VAGINALLY DAILY FOR 2 WEEKS active Not Available Not Available No t Available metolazone 10 mg tablet TAKE 1 TABLET BY MOUTH DAILY active Not Available Not Available Not Available methylpredni solone 4 mg tablets in a dose pack FOLLOW PACKAGE DIRECTIONS active Not Available Not Available N ot Available albuterol sulfate HFA 90 mcg/actuatio n aerosol inhaler INHALE 1 PUFF BY MOUTH EVERY 4 HOURS NEEDED FOR SHORTNESS OF BREATH OR WHEEZING active Not Available Not Available Not Available timolol maleate 0.5 % eye drops INSTILL 1 DROP INTO LEFT EYE TWICE DAILY active Not Available Not Available Not Available cefdinir 300 mg capsule TAKE 1 CAPSULE BY MOUTH EVERY 12 HOURS active Not Available Not Available No t Available pramipexole 1.5 mg tablet TAKE 1 TABLET BY MOUTH AT BEDTIME active Not Available Not Available No t Available amoxicillin 875 mg-potassium clavulanate 125 mg tablet TAKE 1 TABLET BY MOUTH EVERY 12 HOURS active Not Available Not Available No t Available rosuvastatin 5 mg tablet active Not Available Not Available Not Available rosuvastatin 20 mg tablet TAKE 1 TABLET BY MOUTH DAILY active Not Available Not Available Not Available lidocaine (PF) 10 mg/mL (1 %) injection solution In office injection administere d by the provider active [facility]: 0409- 4276- 17 Not Available Not Available Not Available quetiapine 50 mg tablet TAKE 1 TABLET BY MOUTH EVERY NIGHT AT BEDTIME active Not Available Not Available No t Available nebivolol 10 mg tablet TAKE 1 TABLET BY MOUTH DAILY active Not Available Not Available Not Available nebivolol 20 mg tablet TAKE 1 TABLET BY MOUTH DAILY active Not Available Not Available Not Available Savella 100 mg tablet TAKE 1 TABLET BY MOUTH TWICE DAILY active Not Available Not Available No t Available ropivacaine (PF) 5 mg/mL (0.5 %) injection solution Take 20 mg by injection route. active Not Available Not Available No t Available Myrbetriq 25 mg tablet,exten ded release TAKE 1 TABLET BY MOUTH DAILY active Not Available Not Available Not Available potassium chloride ER 20 mEq tablet,exten ded release TAKE 3 TABLETS BY MOUTH TWICE DAILY active Not Available Not Available No t Available Belsomra 20 mg tablet TAKE 1 TABLET BY MOUTH EVERY EVENING active Not Available Not Available No t Available Vitals Date Recorded Body height Provider Name an d Address Organization Details Last Updated DateTime 12/08/2021 162.56 cm Not Available [facility] 3 23:59:27 Social History None recorded. Functional Status None recorded. Mental Status None recorded. Family History Nothing Reported. Medical History No medical history recorded. Gynecological HistoryNo gynecological history recorded. Obstetrics History GPAL:G 0 P 0 0 0 0 Past Encounters Encounter ID Performer Location Encounter Start Date Encounter Closed Date Diagnosis/Indication Diagnosis SNOMED-CT Code Diagnosis ICD10 Code Diagnosis Note [id number] Vic Zelaya MD [facility] [address] [place] [address] 05/09/2021 00:00:00 05/09/2021 12:02:46 [id number] Vic Zelaya MD [facility] [address] [facility] [address] [place] [address] 12/08/2021 00:00:00 12/08/2021 16:32:52 Health Concerns Section Related Observation LastModified by Organization Detai ls LastModified Time None Recorded Concern Status LastModified by Organization Details LastModified Time None Recorded Advance Directives Directive None Recorded Payers None recorded. OBGyn Episode No OBEpisode recorded.
--- OUTSIDE RECORDS SUMMARY | 2024-11-17 01:21 | XMS_ITS | Patient Health Record ---
Author Organization [facility] [employer] Address [address] [facility] [address] [place] [address] Care Team Providers Care Metal Control Coordinator Name Role Phone Bren Andre APN Primary Care Provider Unavail able Rody Ge Unavailable [phone] Carrol Watson Unavailable [phone] Allergies Allergen (clinical drug ingredient) Drug/Non Drug Allergy documented on EMR Reaction Allergy Type Onset Date Status paliperidone Invega body/bone ache Drug Allergy Active Melatonin Unknown Drug Allergy 10/19/2023 Active Reason For Referral No Information Medications Medication SIG (Take, Route, Frequency, Duration) Notes Start Date End Date Status levETIRAcetam 500 MG Oral 10/19/2023 Active NEBIVOLOL 20 MG TABLET *Reorder from [employer] for eRx and Interaction Alerts* 10/19/2023 Active Hydrocortisone 2.5 % Rectal 10/19/2023 Active Pramipexole Dihydrochloride 1 MG Oral 10/19/2023 Active Spironolactone 50 MG Oral 10/19/2023 Active Celecoxib 200 MG Oral 10/19/2023 Ac tive Rosuvastatin Calcium 10 MG Oral 10/19/2023 Active HYDROcodone-Acetamino phen 5-325 MG Oral 10/19/2023 Active Ozempic (0.25 or 0.5 MG/DOSE) 2 MG/3ML Subcutaneous *Pick strength-form from [employer] for eRX* 10/19/2023 Active Pramipexole Dihydrochloride 1.5 MG Oral 10/19/2023 Active DULoxetine HCl 60 MG 1 capsule Oral Once a day for 90 days Active ProAir HFA 108 (90 Base) MCG/ACT Inhalation 10/19/2023 Active GEMTESA 75 MG TABLET *Reorder fr om [employer] for eRx and Interaction Alerts* 10/19/2023 Active Allopurinol 100 MG Oral 10/19/2023 Active NEBIVOLOL 10 MG TABLET *Reorder from [employer] for eRx and Interaction Alerts* 10/19/2023 Active lamoTRIgine 200 MG Oral 10/19/2023 Active ALPRAZolam 0.5 MG Oral 10/19/2023 N ot-Taking Levothyroxine Sodium 25 MCG 1 tablet in the morning on an empty stomach Orally Once a day Active ALPRAZolam 0.25 MG Oral 10/19/2023 Not-Taking Ergocalciferol 1.25 MG (96992 UT) Oral 10/19/2023 Active Paliperidone ER 3 MG TAKE 1 TABLET BY MOUTH DAILY AT BEDTIME for 90 Not-Taking ARIPiprazole 5 MG TAKE 1 TABLET BY MOUTH AT BEDTIME for 30 Active Nitrofurantoin Monohyd Macro 100 MG Oral 10/19/2023 Active Spironolactone 100 MG Oral 10/19/2023 Active Ondansetron 4 MG Oral 10/19/2023 Ac tive busPIRone HCl 7.5 MG 1 tablet Oral Twice a day for 90 days Active traZODone HCl 50 MG 1 tablet at bedtime Oral at bedtime for 90 days Active Immunizations Vaccine Route Administration Date Status Comme nts Pfizer [employer] Covid-19 Vac cine 2nd dose Unknown 08/13/2020 Administered Pfizer [employer] Covid-19 Vac cine 2nd dose Unknown 09/10/2020 Administered Pfizer [employer] Covid-19 Vac cine 2nd dose Unknown 03/17/2021 Administered Social History Tobacco Use: Social History Observation Description Date Details (start date - stop date) Never Smoker NA - NA Sex Assigned At : Social History Observation Description Sex Assigned At Female Tobacco Control (Standard) Question Answer Notes Tobacco use: Nonsmoker AUDIT-C (Standard) Question Answer Notes Did you have a drink containing alcohol in the p ast year? No Points 0 Interpretation Negative Problems Problem Type SNOMED Code ICD Code Onset Dates Problem Status W/U Status Risk Notes Problem Bipolar affective disorder, currently depressed, mild (865832058) Bipolar disorder, current episode depressed, mild (F31.31) 07/29/19 19 Active confirmed Problem Generalized anxiety disorder (F41.1) 10/19/19 24 Active confirmed Problem Primary insomnia (5500503) Primary insomnia (F51.01) 10/19/19 24 Active confirmed Problem Attention deficit hyperactivity disorder, combined type (09553821) Attention-deficit hyperactivity disorder, combined type (F90.2) 10/19/19 24 Active confirmed Problem Recurrent hypersomnia (162876210) Recurrent hypersomnia (G47.13) 02/03/20 23 Active confirmed Problem Screening for cardiovascular system disease (009054068) Encounter for screening for cardiovascular disorders (Z13.6) Active confirmed Problem Depression Screening (020627670) Encounter for screening for depression (Z13.31) Active confirmed Problem 877683060 Bipolar depression (F31.9) Active confirmed Problem 95089759 Bipolar I disorder with melva (F31.10) Active confirmed Vital Signs Heart Rate 86 /min 09/09/2024 Height-cm 162.56 cm 09/09/2024 Blood pressure diastolic 72 mm Hg 09/09/2024 Weight-kg 87.54 kg 09/09/2024 Height 64.00 in 09/09/2024 Blood pressure systolic 112 mm Hg 09/09/2024 Weight 193.0 lbs 09/09/2024 BMI 33.12 kg/m2 09/09/2024 Encounters Encounter Location Date Provider Diagnosis [facility] [employer] [place] [id number] [facility] [address] [place] [address] 04/21/2024 Rody Ge [facility] [employer] [facility] [address] [address] [place] [address] 04/21/2024 Rody Ge Generalized anxiety disorder F41.1 ; Bipolar I disorder with melva F31.10 ; Attention-deficit hyperactivity disorder, combined type F90.2 and Primary insomnia F51.01 [employer] [facility] [address] [place] [address] [place] [address] 05/02/2024 Rody Ge Generalized anxiety disorder F41.1 ; Attention-deficit hyperactivity disorder, combined type F90.2 ; Bipolar I disorder with melva F31.10 and Primary insomnia F51.01 [employer] [facility] [address] [address] [place] [address] 05/09/2024 Rody Ge Bipolar disorder, current episode depressed, mild F31.31 [facility] [employer] [facility] [address] [place] [address] 05/20/2024 Carrol Watson Attention-deficit hyperactivity disorder, combined type F90.2 ; Bipolar disorder, current episode depressed, mild F31.31 and Generalized anxiety disorder F41.1 [facility] [employer] [facility] [address] [place] [address] 05/30/2024 Rody Ge Generalized anxiety disorder F41.1 ; Attention-deficit hyperactivity disorder, combined type F90.2 ; Bipolar I disorder with melva F31.10 and Primary insomnia F51.01 [facility] [employer] [facility] [address] [address] [place] [address] 08/22/2024 Rody Ge [facility] [employer] [facility] [address] [place] [address] 09/09/2024 Rody Ge Encounter for screen ing for cardiovascular disorders Z13.6 ; Bipolar depression F31.9 ; Encounter for screening for depression Z13.31 ; Generalized anxiety disorder F41.1 ; Attention-deficit hyperactivity disorder, combined type F90.2 and Primary insomnia F51.01 [facility] [employer] [facility] [address] [facility] [address] [place] [address] 05/14/2024 Rody Ge [facility] [employer] [facility] [address] [facility] [address] [place] [address] 05/20/2024 Carrol Watson Assessments Encounter Date Diagnosis (ICD Code) Assessment Notes Treatment Notes Treatment Clinical Notes Section Notes 04/21/2024 Bipolar I disorder with melva (ICD-10 - F31.10) Bipolar Disorder: Care Instructions material was published, Learning About Long-Acting Injectable Antipsychotic Medicines material was published, Learning About How to Get Help During a Mental Health Crisis material was published, Learning About Movement Disorders From Antipsychotic Medicines material was published, Learning About Mood Disorders material was published presently taking Buspar 7.5 mg daily, Lamotrigine 200 mg bedtime, Cymbalta 60 mg daily, Trazodone 50 mg bedtime, Invega 1.5 mg evening Bipolar current melva last few days INCREASE Invega 3 mg evening for Bipolar melva discuss and educated on Invega Sustenna and patient would like to have injection Will start Invega Sustena 234 mg IM sample and send in for PA for Invega Sustenna 156 mg dose before starting injection 234 mg dose then in 1 week will give Invega Sustenna 156 mg IM monthly Lamotrigine 200 mg bedtime, Cymbalta 60 mg daily, Anxiety- Buspar 7.5 mg daily Sleep Trazodone 50 mg bedtime ADHD- no rx schedule therapy JENNIFER hx SSRI side effects discussed including but not limited to, gastric upset, nausea, vomiting, diarrhea and/or constipation, weight changes, sexual side effects including loss of libido, increased suicidal thoughts/behavio rs in children and young adults, and serotonin syndrome. Second generation antipsychotics (SGAs) have metabolic syndrome issues with weight gain, increase in prolactin, increased waist circumference, increased lipids, and increased glucose. Thus routine monitoring of weight, metabolic labs, etc. is indicated. A general rank ordering of antipsychotics that have the greatest to the least risk of metabolic effects is olanzapine, quetiapine, risperidone, ziprasidone, and aripiprazole. However, weight gain can occur with all of these drugs and considerable variability exists among patients receiving the same drug regarding the risk of metabolic effects. Anti-psychotic agents not only increase the risk of metabolic disorder, they also increase the risk of CVA, akathisia, and movement disorders including EPS or tardive dyskinesia (more common with first generation antipsychotics) and more. educated on all medications, benefits, side effects and risk, and educated on depression, anxiety, and ADHD, mood d/o and educated on compliance of medications, metabolic and movement d/o education appointment's, continue therapy discussion with patient about course of treatment and patient instructions. education on serotonin syndrome 05/20/2024 Attention-deficit hyperactivity disorder, combined type (ICD-10 - F90.2) 05/09/2024 Bipolar disorder, current episode depressed, mild (ICD-10 - F31.31) 05/02/2024 Generalized anxiety disorder (ICD-10 - F41.1) Generalized Anxiety Disorder: Care Instructions material was published, Learning About Generalized Anxiety Disorder material was published, Learning About Anxiety Disorders material was published presently taking Buspar 7.5 mg daily, Lamotrigine 200 mg bedtime, Cymbalta 60 mg daily, Trazodone 50 mg bedtime, Invega 1.5 mg evening Bipolar I - Melva improved and mild depression Invega 3 mg evening for Bipolar helped melva - will stop after Invega Sustenna 156 mg dose next week discuss and educated on Invega Sustenna and patient agreed discuss and educated on Invega Sustenna and patient would like to have injection 05/02/24 Will start Invega Sustena 234 mg IM sample and send in for PA for Invega Sustenna 156 mg dose before starting injection 234 mg dose then in 1 week will give Invega Sustenna 156 mg IM monthly discuss Invega Trinza and Hayfra injection for near future Lamotrigine 200 mg bedtime, Cymbalta 60 mg daily, Anxiety- Buspar 7.5 mg daily Sleep Trazodone 50 mg bedtime ADHD- no rx schedule therapy JENNIFER hx SSRI side effects discussed including but not limited to, gastric upset, nausea, vomiting, diarrhea and/or constipation, weight changes, sexual side effects including loss of libido, increased suicidal thoughts/behavio rs in children and young adults, and serotonin syndrome. Second generation antipsychotics (SGAs) have metabolic syndrome issues with weight gain, increase in prolactin, increased waist circumference, increased lipids, and increased glucose. Thus routine monitoring of weight, metabolic labs, etc. is indicated. A general rank ordering of antipsychotics that have the greatest to the least risk of metabolic effects is olanzapine, quetiapine, risperidone, ziprasidone, and aripiprazole. However, weight gain can occur with all of these drugs and considerable variability exists among patients receiving the same drug regarding the risk of metabolic effects. Anti-psychotic agents not only increase the risk of metabolic disorder, they also increase the risk of CVA, akathisia, and movement disorders including EPS or tardive dyskinesia (more common with first generation antipsychotics) and more. educated on all medications, benefits, side effects and risk, and educated on depression, anxiety, and ADHD, mood d/o and educated on compliance of medications, metabolic and movement d/o education appointment's, continue therapy discussion with patient about course of treatment and patient instructions. education on serotonin syndrome 09/09/2024 Encounter for screening for cardiovascular disorders (ICD-10 - Z13.6) Bipolar I - mild depression Patient stop Invega 3 mg patient reported body aches disucss medication to control melva s/s recent melva 08/12 discuss and educated on adding Abilify 5 mg at night discuss benefits, side effects and risk Lamotrigine 200 mg bedtime, Cymbalta 60 mg daily, Anxiety- Buspar 7.5 mg daily Sleep Trazodone 50 mg bedtime ADHD- no rx schedule therapy JENNIFER hx SSRI side effects discussed including but not limited to, gastric upset, nausea, vomiting, diarrhea and/or constipation, weight changes, sexual side effects including loss of libido, increased suicidal thoughts/behavio rs in children and young adults, and serotonin syndrome. Second generation antipsychotics (SGAs) have metabolic syndrome issues with weight gain, increase in prolactin, increased waist circumference, increased lipids, and increased glucose. Thus routine monitoring of weight, metabolic labs, etc. is indicated. A general rank ordering of antipsychotics that have the greatest to the least risk of metabolic effects is olanzapine, quetiapine, risperidone, ziprasidone, and aripiprazole. However, weight gain can occur with all of these drugs and considerable variability exists among patients receiving the same drug regarding the risk of metabolic effects. Anti-psychotic agents not only increase the risk of metabolic disorder, they also increase the risk of CVA, akathisia, and movement disorders including EPS or tardive dyskinesia (more common with first generation antipsychotics) and more. educated on all medications, benefits, side effects and risk, and educated on depression, anxiety, and ADHD, mood d/o and educated on compliance of medications, metabolic and movement d/o education appointment's, continue therapy discussion with patient about course of treatment and patient instructions. education on serotonin syndrome 09/09/2024 Bipolar depression (ICD-10 - F31.9) Bipolar Disorder: Care Instructions material was published, Learning About Movement Disorders From Antipsychotic Medicines material was published, Learning About How to Get Help During a Mental Health Crisis material was published, Learning About Mood Disorders material was published Bipolar I - mild depression Patient stop Invega 3 mg patient reported body aches disucss medication to control melva s/s recent melva 08/12 discuss and educated on adding Abilify 5 mg at night discuss benefits, side effects and risk Lamotrigine 200 mg bedtime, Cymbalta 60 mg daily, Anxiety- Buspar 7.5 mg daily Sleep Trazodone 50 mg bedtime ADHD- no rx schedule therapy JENNIFER hx SSRI side effects discussed including but not limited to, gastric upset, nausea, vomiting, diarrhea and/or constipation, weight changes, sexual side effects including loss of libido, increased suicidal thoughts/behavio rs in children and young adults, and serotonin syndrome. Second generation antipsychotics (SGAs) have metabolic syndrome issues with weight gain, increase in prolactin, increased waist circumference, increased lipids, and increased glucose. Thus routine monitoring of weight, metabolic labs, etc. is indicated. A general rank ordering of antipsychotics that have the greatest to the least risk of metabolic effects is olanzapine, quetiapine, risperidone, ziprasidone, and aripiprazole. However, weight gain can occur with all of these drugs and considerable variability exists among patients receiving the same drug regarding the risk of metabolic effects. Anti-psychotic agents not only increase the risk of metabolic disorder, they also increase the risk of CVA, akathisia, and movement disorders including EPS or tardive dyskinesia (more common with first generation antipsychotics) and more. educated on all medications, benefits, side effects and risk, and educated on depression, anxiety, and ADHD, mood d/o and educated on compliance of medications, metabolic and movement d/o education appointment's, continue therapy discussion with patient about course of treatment and patient instructions. education on serotonin syndrome 05/30/2024 Generalized anxiety disorder (ICD-10 - F41.1) Generalized Anxiety Disorder: Care Instructions material was published, Learning About Generalized Anxiety Disorder material was published, Learning About Anxiety Disorders material was published Bipolar I - Melva improved and mild depression Will stop Invega Sustenna 156 mg dose monthly patient reported body aches Patient reported perfer to have Invega 3 mg at bedtime Lamotrigine 200 mg bedtime, Cymbalta 60 mg daily, Anxiety- Buspar 7.5 mg daily Sleep Trazodone 50 mg bedtime ADHD- no rx schedule therapy JENNIFER hx SSRI side effects discussed including but not limited to, gastric upset, nausea, vomiting, diarrhea and/or constipation, weight changes, sexual side effects including loss of libido, increased suicidal thoughts/behavio rs in children and young adults, and serotonin syndrome. Second generation antipsychotics (SGAs) have metabolic syndrome issues with weight gain, increase in prolactin, increased waist circumference, increased lipids, and increased glucose. Thus routine monitoring of weight, metabolic labs, etc. is indicated. A general rank ordering of antipsychotics that have the greatest to the least risk of metabolic effects is olanzapine, quetiapine, risperidone, ziprasidone, and aripiprazole. However, weight gain can occur with all of these drugs and considerable variability exists among patients receiving the same drug regarding the risk of metabolic effects. Anti-psychotic agents not only increase the risk of metabolic disorder, they also increase the risk of CVA, akathisia, and movement disorders including EPS or tardive dyskinesia (more common with first generation antipsychotics) and more. educated on all medications, benefits, side effects and risk, and educated on depression, anxiety, and ADHD, mood d/o and educated on compliance of medications, metabolic and movement d/o education appointment's, continue therapy discussion with patient about course of treatment and patient instructions. education on serotonin syndrome 05/20/2024 Bipolar disorder, current episode depressed, mild (ICD-10 - F31.31) 04/21/2024 Generalized anxiety disorder (ICD-10 - F41.1) Generalized Anxiety Disorder: Care Instructions material was published, Learning About Generalized Anxiety Disorder material was published, Learning About Anxiety Disorders material was published presently taking Buspar 7.5 mg daily, Lamotrigine 200 mg bedtime, Cymbalta 60 mg daily, Trazodone 50 mg bedtime, Invega 1.5 mg evening Bipolar current melva last few days INCREASE Invega 3 mg evening for Bipolar melva discuss and educated on Invega Sustenna and patient would like to have injection Will start Invega Sustena 234 mg IM sample and send in for PA for Invega Sustenna 156 mg dose before starting injection 234 mg dose then in 1 week will give Invega Sustenna 156 mg IM monthly Lamotrigine 200 mg bedtime, Cymbalta 60 mg daily, Anxiety- Buspar 7.5 mg daily Sleep Trazodone 50 mg bedtime ADHD- no rx schedule therapy JENNIFER hx SSRI side effects discussed including but not limited to, gastric upset, nausea, vomiting, diarrhea and/or constipation, weight changes, sexual side effects including loss of libido, increased suicidal thoughts/behavio rs in children and young adults, and serotonin syndrome. Second generation antipsychotics (SGAs) have metabolic syndrome issues with weight gain, increase in prolactin, increased waist circumference, increased lipids, and increased glucose. Thus routine monitoring of weight, metabolic labs, etc. is indicated. A general rank ordering of antipsychotics that have the greatest to the least risk of metabolic effects is olanzapine, quetiapine, risperidone, ziprasidone, and aripiprazole. However, weight gain can occur with all of these drugs and considerable variability exists among patients receiving the same drug regarding the risk of metabolic effects. Anti-psychotic agents not only increase the risk of metabolic disorder, they also increase the risk of CVA, akathisia, and movement disorders including EPS or tardive dyskinesia (more common with first generation antipsychotics) and more. educated on all medications, benefits, side effects and risk, and educated on depression, anxiety, and ADHD, mood d/o and educated on compliance of medications, metabolic and movement d/o education appointment's, continue therapy discussion with patient about course of treatment and patient instructions. education on serotonin syndrome 04/21/2024 Attention-deficit hyperactivity disorder, combined type (ICD-10 - F90.2) Learning About Attention Deficit Hyperactivity Disorder (ADHD) in Adults material was published presently taking Buspar 7.5 mg daily, Lamotrigine 200 mg bedtime, Cymbalta 60 mg daily, Trazodone 50 mg bedtime, Invega 1.5 mg evening Bipolar current melva last few days INCREASE Invega 3 mg evening for Bipolar melva discuss and educated on Invega Sustenna and patient would like to have injection Will start Invega Sustena 234 mg IM sample and send in for PA for Invega Sustenna 156 mg dose before starting injection 234 mg dose then in 1 week will give Invega Sustenna 156 mg IM monthly Lamotrigine 200 mg bedtime, Cymbalta 60 mg daily, Anxiety- Buspar 7.5 mg daily Sleep Trazodone 50 mg bedtime ADHD- no rx schedule therapy JENNIFER hx SSRI side effects discussed including but not limited to, gastric upset, nausea, vomiting, diarrhea and/or constipation, weight changes, sexual side effects including loss of libido, increased suicidal thoughts/behavio rs in children and young adults, and serotonin syndrome. Second generation antipsychotics (SGAs) have metabolic syndrome issues with weight gain, increase in prolactin, increased waist circumference, increased lipids, and increased glucose. Thus routine monitoring of weight, metabolic labs, etc. is indicated. A general rank ordering of antipsychotics that have the greatest to the least risk of metabolic effects is olanzapine, quetiapine, risperidone, ziprasidone, and aripiprazole. However, weight gain can occur with all of these drugs and considerable variability exists among patients receiving the same drug regarding the risk of metabolic effects. Anti-psychotic agents not only increase the risk of metabolic disorder, they also increase the risk of CVA, akathisia, and movement disorders including EPS or tardive dyskinesia (more common with first generation antipsychotics) and more. educated on all medications, benefits, side effects and risk, and educated on depression, anxiety, and ADHD, mood d/o and educated on compliance of medications, metabolic and movement d/o education appointment's, continue therapy discussion with patient about course of treatment and patient instructions. education on serotonin syndrome 05/20/2024 Generalized anxiety disorder (ICD-10 - F41.1) 05/02/2024 Attention-deficit hyperactivity disorder, combined type (ICD-10 - F90.2) Learning About Attention Deficit Hyperactivity Disorder (ADHD) in Adults material was published presently taking Buspar 7.5 mg daily, Lamotrigine 200 mg bedtime, Cymbalta 60 mg daily, Trazodone 50 mg bedtime, Invega 1.5 mg evening Bipolar I - Melva improved and mild depression Invega 3 mg evening for Bipolar helped melva - will stop after Invega Sustenna 156 mg dose next week discuss and educated on Invega Sustenna and patient agreed discuss and educated on Invega Sustenna and patient would like to have injection 05/02/24 Will start Invega Sustena 234 mg IM sample and send in for PA for Invega Sustenna 156 mg dose before starting injection 234 mg dose then in 1 week will give Invega Sustenna 156 mg IM monthly discuss Invega Trinza and Hayfra injection for near future Lamotrigine 200 mg bedtime, Cymbalta 60 mg daily, Anxiety- Buspar 7.5 mg daily Sleep Trazodone 50 mg bedtime ADHD- no rx schedule therapy JENNIFER hx SSRI side effects discussed including but not limited to, gastric upset, nausea, vomiting, diarrhea and/or constipation, weight changes, sexual side effects including loss of libido, increased suicidal thoughts/behavio rs in children and young adults, and serotonin syndrome. Second generation antipsychotics (SGAs) have metabolic syndrome issues with weight gain, increase in prolactin, increased waist circumference, increased lipids, and increased glucose. Thus routine monitoring of weight, metabolic labs, etc. is indicated. A general rank ordering of antipsychotics that have the greatest to the least risk of metabolic effects is olanzapine, quetiapine, risperidone, ziprasidone, and aripiprazole. However, weight gain can occur with all of these drugs and considerable variability exists among patients receiving the same drug regarding the risk of metabolic effects. Anti-psychotic agents not only increase the risk of metabolic disorder, they also increase the risk of CVA, akathisia, and movement disorders including EPS or tardive dyskinesia (more common with first generation antipsychotics) and more. educated on all medications, benefits, side effects and risk, and educated on depression, anxiety, and ADHD, mood d/o and educated on compliance of medications, metabolic and movement d/o education appointment's, continue therapy discussion with patient about course of treatment and patient instructions. education on serotonin syndrome 05/30/2024 Attention-deficit hyperactivity disorder, combined type (ICD-10 - F90.2) Learning About Attention Deficit Hyperactivity Disorder (ADHD) in Adults material was published Bipolar I - Melva improved and mild depression Will stop Invega Sustenna 156 mg dose monthly patient reported body aches Patient reported perfer to have Invega 3 mg at bedtime Lamotrigine 200 mg bedtime, Cymbalta 60 mg daily, Anxiety- Buspar 7.5 mg daily Sleep Trazodone 50 mg bedtime ADHD- no rx schedule therapy JENNIFER hx SSRI side effects discussed including but not limited to, gastric upset, nausea, vomiting, diarrhea and/or constipation, weight changes, sexual side effects including loss of libido, increased suicidal thoughts/behavio rs in children and young adults, and serotonin syndrome. Second generation antipsychotics (SGAs) have metabolic syndrome issues with weight gain, increase in prolactin, increased waist circumference, increased lipids, and increased glucose. Thus routine monitoring of weight, metabolic labs, etc. is indicated. A general rank ordering of antipsychotics that have the greatest to the least risk of metabolic effects is olanzapine, quetiapine, risperidone, ziprasidone, and aripiprazole. However, weight gain can occur with all of these drugs and considerable variability exists among patients receiving the same drug regarding the risk of metabolic effects. Anti-psychotic agents not only increase the risk of metabolic disorder, they also increase the risk of CVA, akathisia, and movement disorders including EPS or tardive dyskinesia (more common with first generation antipsychotics) and more. educated on all medications, benefits, side effects and risk, and educated on depression, anxiety, and ADHD, mood d/o and educated on compliance of medications, metabolic and movement d/o education appointment's, continue therapy discussion with patient about course of treatment and patient instructions. education on serotonin syndrome 09/09/2024 Encounter for screening for depression (ICD-10 - Z13.31) Learning About Depression Screening material was published Bipolar I - mild depression Patient stop Invega 3 mg patient reported body aches disucss medication to control melva s/s recent melva 08/12 discuss and educated on adding Abilify 5 mg at night discuss benefits, side effects and risk Lamotrigine 200 mg bedtime, Cymbalta 60 mg daily, Anxiety- Buspar 7.5 mg daily Sleep Trazodone 50 mg bedtime ADHD- no rx schedule therapy JENNIFER hx SSRI side effects discussed including but not limited to, gastric upset, nausea, vomiting, diarrhea and/or constipation, weight changes, sexual side effects including loss of libido, increased suicidal thoughts/behavio rs in children and young adults, and serotonin syndrome. Second generation antipsychotics (SGAs) have metabolic syndrome issues with weight gain, increase in prolactin, increased waist circumference, increased lipids, and increased glucose. Thus routine monitoring of weight, metabolic labs, etc. is indicated. A general rank ordering of antipsychotics that have the greatest to the least risk of metabolic effects is olanzapine, quetiapine, risperidone, ziprasidone, and aripiprazole. However, weight gain can occur with all of these drugs and considerable variability exists among patients receiving the same drug regarding the risk of metabolic effects. Anti-psychotic agents not only increase the risk of metabolic disorder, they also increase the risk of CVA, akathisia, and movement disorders including EPS or tardive dyskinesia (more common with first generation antipsychotics) and more. educated on all medications, benefits, side effects and risk, and educated on depression, anxiety, and ADHD, mood d/o and educated on compliance of medications, metabolic and movement d/o education appointment's, continue therapy discussion with patient about course of treatment and patient instructions. education on serotonin syndrome 09/09/2024 Generalized anxiety disorder (ICD-10 - F41.1) Generalized Anxiety Disorder: Care Instructions material was published, Learning About Generalized Anxiety Disorder material was published, Learning About Anxiety Disorders material was published, Learning About Generalized Anxiety Disorder material was published, Generalized Anxiety Disorder: Care Instructions material was published Bipolar I - mild depression Patient stop Invega 3 mg patient reported body aches disucss medication to control melva s/s recent melva 08/12 discuss and educated on adding Abilify 5 mg at night discuss benefits, side effects and risk Lamotrigine 200 mg bedtime, Cymbalta 60 mg daily, Anxiety- Buspar 7.5 mg daily Sleep Trazodone 50 mg bedtime ADHD- no rx schedule therapy JENNIFER hx SSRI side effects discussed including but not limited to, gastric upset, nausea, vomiting, diarrhea and/or constipation, weight changes, sexual side effects including loss of libido, increased suicidal thoughts/behavio rs in children and young adults, and serotonin syndrome. Second generation antipsychotics (SGAs) have metabolic syndrome issues with weight gain, increase in prolactin, increased waist circumference, increased lipids, and increased glucose. Thus routine monitoring of weight, metabolic labs, etc. is indicated. A general rank ordering of antipsychotics that have the greatest to the least risk of metabolic effects is olanzapine, quetiapine, risperidone, ziprasidone, and aripiprazole. However, weight gain can occur with all of these drugs and considerable variability exists among patients receiving the same drug regarding the risk of metabolic effects. Anti-psychotic agents not only increase the risk of metabolic disorder, they also increase the risk of CVA, akathisia, and movement disorders including EPS or tardive dyskinesia (more common with first generation antipsychotics) and more. educated on all medications, benefits, side effects and risk, and educated on depression, anxiety, and ADHD, mood d/o and educated on compliance of medications, metabolic and movement d/o education appointment's, continue therapy discussion with patient about course of treatment and patient instructions. education on serotonin syndrome 05/30/2024 Bipolar I disorder with melva (ICD-10 - F31.10) Bipolar Disorder: Care Instructions material was published, Learning About Long-Acting Injectable Antipsychotic Medicines material was published, Learning About How to Get Help During a Mental Health Crisis material was published, Learning About Movement Disorders From Antipsychotic Medicines material was published, Learning About Mood Disorders material was published Bipolar I - Melva improved and mild depression Will stop Invega Sustenna 156 mg dose monthly patient reported body aches Patient reported perfer to have Invega 3 mg at bedtime Lamotrigine 200 mg bedtime, Cymbalta 60 mg daily, Anxiety- Buspar 7.5 mg daily Sleep Trazodone 50 mg bedtime ADHD- no rx schedule therapy JENNIFER hx SSRI side effects discussed including but not limited to, gastric upset, nausea, vomiting, diarrhea and/or constipation, weight changes, sexual side effects including loss of libido, increased suicidal thoughts/behavio rs in children and young adults, and serotonin syndrome. Second generation antipsychotics (SGAs) have metabolic syndrome issues with weight gain, increase in prolactin, increased waist circumference, increased lipids, and increased glucose. Thus routine monitoring of weight, metabolic labs, etc. is indicated. A general rank ordering of antipsychotics that have the greatest to the least risk of metabolic effects is olanzapine, quetiapine, risperidone, ziprasidone, and aripiprazole. However, weight gain can occur with all of these drugs and considerable variability exists among patients receiving the same drug regarding the risk of metabolic effects. Anti-psychotic agents not only increase the risk of metabolic disorder, they also increase the risk of CVA, akathisia, and movement disorders including EPS or tardive dyskinesia (more common with first generation antipsychotics) and more. educated on all medications, benefits, side effects and risk, and educated on depression, anxiety, and ADHD, mood d/o and educated on compliance of medications, metabolic and movement d/o education appointment's, continue therapy discussion with patient about course of treatment and patient instructions. education on serotonin syndrome 05/02/2024 Bipolar I disorder with melva (ICD-10 - F31.10) Bipolar Disorder: Care Instructions material was published, Learning About Long-Acting Injectable Antipsychotic Medicines material was published, Learning About How to Get Help During a Mental Health Crisis material was published, Learning About Movement Disorders From Antipsychotic Medicines material was published, Learning About Mood Disorders material was published presently taking Buspar 7.5 mg daily, Lamotrigine 200 mg bedtime, Cymbalta 60 mg daily, Trazodone 50 mg bedtime, Invega 1.5 mg evening Bipolar I - Melva improved and mild depression Invega 3 mg evening for Bipolar helped melva - will stop after Invega Sustenna 156 mg dose next week discuss and educated on Invega Sustenna and patient agreed discuss and educated on Invega Sustenna and patient would like to have injection 05/02/24 Will start Invega Sustena 234 mg IM sample and send in for PA for Invega Sustenna 156 mg dose before starting injection 234 mg dose then in 1 week will give Invega Sustenna 156 mg IM monthly discuss Invega Trinza and Hayfra injection for near future Lamotrigine 200 mg bedtime, Cymbalta 60 mg daily, Anxiety- Buspar 7.5 mg daily Sleep Trazodone 50 mg bedtime ADHD- no rx schedule therapy JENNIFER hx SSRI side effects discussed including but not limited to, gastric upset, nausea, vomiting, diarrhea and/or constipation, weight changes, sexual side effects including loss of libido, increased suicidal thoughts/behavio rs in children and young adults, and serotonin syndrome. Second generation antipsychotics (SGAs) have metabolic syndrome issues with weight gain, increase in prolactin, increased waist circumference, increased lipids, and increased glucose. Thus routine monitoring of weight, metabolic labs, etc. is indicated. A general rank ordering of antipsychotics that have the greatest to the least risk of metabolic effects is olanzapine, quetiapine, risperidone, ziprasidone, and aripiprazole. However, weight gain can occur with all of these drugs and considerable variability exists among patients receiving the same drug regarding the risk of metabolic effects. Anti-psychotic agents not only increase the risk of metabolic disorder, they also increase the risk of CVA, akathisia, and movement disorders including EPS or tardive dyskinesia (more common with first generation antipsychotics) and more. educated on all medications, benefits, side effects and risk, and educated on depression, anxiety, and ADHD, mood d/o and educated on compliance of medications, metabolic and movement d/o education appointment's, continue therapy discussion with patient about course of treatment and patient instructions. education on serotonin syndrome 04/21/2024 Primary insomnia (ICD-10 - F51.01) Insomnia: Care Instructions material was published, Learning About Sleeping Well material was published presently taking Buspar 7.5 mg daily, Lamotrigine 200 mg bedtime, Cymbalta 60 mg daily, Trazodone 50 mg bedtime, Invega 1.5 mg evening Bipolar current melva last few days INCREASE Invega 3 mg evening for Bipolar melva discuss and educated on Invega Sustenna and patient would like to have injection Will start Invega Sustena 234 mg IM sample and send in for PA for Invega Sustenna 156 mg dose before starting injection 234 mg dose then in 1 week will give Invega Sustenna 156 mg IM monthly Lamotrigine 200 mg bedtime, Cymbalta 60 mg daily, Anxiety- Buspar 7.5 mg daily Sleep Trazodone 50 mg bedtime ADHD- no rx schedule therapy JENNIFER hx SSRI side effects discussed including but not limited to, gastric upset, nausea, vomiting, diarrhea and/or constipation, weight changes, sexual side effects including loss of libido, increased suicidal thoughts/behavio rs in children and young adults, and serotonin syndrome. Second generation antipsychotics (SGAs) have metabolic syndrome issues with weight gain, increase in prolactin, increased waist circumference, increased lipids, and increased glucose. Thus routine monitoring of weight, metabolic labs, etc. is indicated. A general rank ordering of antipsychotics that have the greatest to the least risk of metabolic effects is olanzapine, quetiapine, risperidone, ziprasidone, and aripiprazole. However, weight gain can occur with all of these drugs and considerable variability exists among patients receiving the same drug regarding the risk of metabolic effects. Anti-psychotic agents not only increase the risk of metabolic disorder, they also increase the risk of CVA, akathisia, and movement disorders including EPS or tardive dyskinesia (more common with first generation antipsychotics) and more. educated on all medications, benefits, side effects and risk, and educated on depression, anxiety, and ADHD, mood d/o and educated on compliance of medications, metabolic and movement d/o education appointment's, continue therapy discussion with patient about course of treatment and patient instructions. education on serotonin syndrome 05/02/2024 Primary insomnia (ICD-10 - F51.01) Insomnia: Care Instructions material was published, Learning About Sleeping Well material was published presently taking Buspar 7.5 mg daily, Lamotrigine 200 mg bedtime, Cymbalta 60 mg daily, Trazodone 50 mg bedtime, Invega 1.5 mg evening Bipolar I - Melva improved and mild depression Invega 3 mg evening for Bipolar helped melva - will stop after Invega Sustenna 156 mg dose next week discuss and educated on Invega Sustenna and patient agreed discuss and educated on Invega Sustenna and patient would like to have injection 05/02/24 Will start Invega Sustena 234 mg IM sample and send in for PA for Invega Sustenna 156 mg dose before starting injection 234 mg dose then in 1 week will give Invega Sustenna 156 mg IM monthly discuss Invega Trinza and Hayfra injection for near future Lamotrigine 200 mg bedtime, Cymbalta 60 mg daily, Anxiety- Buspar 7.5 mg daily Sleep Trazodone 50 mg bedtime ADHD- no rx schedule therapy JENNIFER hx SSRI side effects discussed including but not limited to, gastric upset, nausea, vomiting, diarrhea and/or constipation, weight changes, sexual side effects including loss of libido, increased suicidal thoughts/behavio rs in children and young adults, and serotonin syndrome. Second generation antipsychotics (SGAs) have metabolic syndrome issues with weight gain, increase in prolactin, increased waist circumference, increased lipids, and increased glucose. Thus routine monitoring of weight, metabolic labs, etc. is indicated. A general rank ordering of antipsychotics that have the greatest to the least risk of metabolic effects is olanzapine, quetiapine, risperidone, ziprasidone, and aripiprazole. However, weight gain can occur with all of these drugs and considerable variability exists among patients receiving the same drug regarding the risk of metabolic effects. Anti-psychotic agents not only increase the risk of metabolic disorder, they also increase the risk of CVA, akathisia, and movement disorders including EPS or tardive dyskinesia (more common with first generation antipsychotics) and more. educated on all medications, benefits, side effects and risk, and educated on depression, anxiety, and ADHD, mood d/o and educated on compliance of medications, metabolic and movement d/o education appointment's, continue therapy discussion with patient about course of treatment and patient instructions. education on serotonin syndrome 09/09/2024 Attention-deficit hyperactivity disorder, combined type (ICD-10 - F90.2) Learning About Attention Deficit Hyperactivity Disorder (ADHD) in Adults material was published Bipolar I - mild depression Patient stop Invega 3 mg patient reported body aches disucss medication to control melva s/s recent melva 08/12 discuss and educated on adding Abilify 5 mg at night discuss benefits, side effects and risk Lamotrigine 200 mg bedtime, Cymbalta 60 mg daily, Anxiety- Buspar 7.5 mg daily Sleep Trazodone 50 mg bedtime ADHD- no rx schedule therapy JENNIFER hx SSRI side effects discussed including but not limited to, gastric upset, nausea, vomiting, diarrhea and/or constipation, weight changes, sexual side effects including loss of libido, increased suicidal thoughts/behavio rs in children and young adults, and serotonin syndrome. Second generation antipsychotics (SGAs) have metabolic syndrome issues with weight gain, increase in prolactin, increased waist circumference, increased lipids, and increased glucose. Thus routine monitoring of weight, metabolic labs, etc. is indicated. A general rank ordering of antipsychotics that have the greatest to the least risk of metabolic effects is olanzapine, quetiapine, risperidone, ziprasidone, and aripiprazole. However, weight gain can occur with all of these drugs and considerable variability exists among patients receiving the same drug regarding the risk of metabolic effects. Anti-psychotic agents not only increase the risk of metabolic disorder, they also increase the risk of CVA, akathisia, and movement disorders including EPS or tardive dyskinesia (more common with first generation antipsychotics) and more. educated on all medications, benefits, side effects and risk, and educated on depression, anxiety, and ADHD, mood d/o and educated on compliance of medications, metabolic and movement d/o education appointment's, continue therapy discussion with patient about course of treatment and patient instructions. education on serotonin syndrome 05/30/2024 Primary insomnia (ICD-10 - F51.01) Insomnia: Care Instructions material was published, Learning About Sleeping Well material was published Bipolar I - Melva improved and mild depression Will stop Invega Sustenna 156 mg dose monthly patient reported body aches Patient reported perfer to have Invega 3 mg at bedtime Lamotrigine 200 mg bedtime, Cymbalta 60 mg daily, Anxiety- Buspar 7.5 mg daily Sleep Trazodone 50 mg bedtime ADHD- no rx schedule therapy JENNIFER hx SSRI side effects discussed including but not limited to, gastric upset, nausea, vomiting, diarrhea and/or constipation, weight changes, sexual side effects including loss of libido, increased suicidal thoughts/behavio rs in children and young adults, and serotonin syndrome. Second generation antipsychotics (SGAs) have metabolic syndrome issues with weight gain, increase in prolactin, increased waist circumference, increased lipids, and increased glucose. Thus routine monitoring of weight, metabolic labs, etc. is indicated. A general rank ordering of antipsychotics that have the greatest to the least risk of metabolic effects is olanzapine, quetiapine, risperidone, ziprasidone, and aripiprazole. However, weight gain can occur with all of these drugs and considerable variability exists among patients receiving the same drug regarding the risk of metabolic effects. Anti-psychotic agents not only increase the risk of metabolic disorder, they also increase the risk of CVA, akathisia, and movement disorders including EPS or tardive dyskinesia (more common with first generation antipsychotics) and more. educated on all medications, benefits, side effects and risk, and educated on depression, anxiety, and ADHD, mood d/o and educated on compliance of medications, metabolic and movement d/o education appointment's, continue therapy discussion with patient about course of treatment and patient instructions. education on serotonin syndrome 09/09/2024 Primary insomnia (ICD-10 - F51.01) Insomnia: Care Instructions material was published, Learning About Sleeping Well material was published, Insomnia: Care Instructions material was published Bipolar I - mild depression Patient stop Invega 3 mg patient reported body aches disucss medication to control melva s/s recent melva 08/12 discuss and educated on adding Abilify 5 mg at night discuss benefits, side effects and risk Lamotrigine 200 mg bedtime, Cymbalta 60 mg daily, Anxiety- Buspar 7.5 mg daily Sleep Trazodone 50 mg bedtime ADHD- no rx schedule therapy JENNIFER hx SSRI side effects discussed including but not limited to, gastric upset, nausea, vomiting, diarrhea and/or constipation, weight changes, sexual side effects including loss of libido, increased suicidal thoughts/behavio rs in children and young adults, and serotonin syndrome. Second generation antipsychotics (SGAs) have metabolic syndrome issues with weight gain, increase in prolactin, increased waist circumference, increased lipids, and increased glucose. Thus routine monitoring of weight, metabolic labs, etc. is indicated. A general rank ordering of antipsychotics that have the greatest to the least risk of metabolic effects is olanzapine, quetiapine, risperidone, ziprasidone, and aripiprazole. However, weight gain can occur with all of these drugs and considerable variability exists among patients receiving the same drug regarding the risk of metabolic effects. Anti-psychotic agents not only increase the risk of metabolic disorder, they also increase the risk of CVA, akathisia, and movement disorders including EPS or tardive dyskinesia (more common with first generation antipsychotics) and more. educated on all medications, benefits, side effects and risk, and educated on depression, anxiety, and ADHD, mood d/o and educated on compliance of medications, metabolic and movement d/o education appointment's, continue therapy discussion with patient about course of treatment and patient instructions. education on serotonin syndrome 04/21/2024 Other Duloxetine Delayed Release Oral Capsule 60 mg (DULOXETINE - ORAL) material was published, Paliperidone Extended Release Oral Tablet (PALIPERIDONE EXTENDED-RELEASE - ORAL) material was published, Buspirone Oral Tablet (BUSPIRONE - ORAL) material was published, Trazodone Oral Tablet (TRAZODONE - ORAL) material was published presently taking Buspar 7.5 mg daily, Lamotrigine 200 mg bedtime, Cymbalta 60 mg daily, Trazodone 50 mg bedtime, Invega 1.5 mg evening Bipolar current melva last few days INCREASE Invega 3 mg evening for Bipolar melva discuss and educated on Invega Sustenna and patient would like to have injection Will start Invega Sustena 234 mg IM sample and send in for PA for Invega Sustenna 156 mg dose before starting injection 234 mg dose then in 1 week will give Invega Sustenna 156 mg IM monthly Lamotrigine 200 mg bedtime, Cymbalta 60 mg daily, Anxiety- Buspar 7.5 mg daily Sleep Trazodone 50 mg bedtime ADHD- no rx schedule therapy JENNIFER hx SSRI side effects discussed including but not limited to, gastric upset, nausea, vomiting, diarrhea and/or constipation, weight changes, sexual side effects including loss of libido, increased suicidal thoughts/behavio rs in children and young adults, and serotonin syndrome. Second generation antipsychotics (SGAs) have metabolic syndrome issues with weight gain, increase in prolactin, increased waist circumference, increased lipids, and increased glucose. Thus routine monitoring of weight, metabolic labs, etc. is indicated. A general rank ordering of antipsychotics that have the greatest to the least risk of metabolic effects is olanzapine, quetiapine, risperidone, ziprasidone, and aripiprazole. However, weight gain can occur with all of these drugs and considerable variability exists among patients receiving the same drug regarding the risk of metabolic effects. Anti-psychotic agents not only increase the risk of metabolic disorder, they also increase the risk of CVA, akathisia, and movement disorders including EPS or tardive dyskinesia (more common with first generation antipsychotics) and more. educated on all medications, benefits, side effects and risk, and educated on depression, anxiety, and ADHD, mood d/o and educated on compliance of medications, metabolic and movement d/o education appointment's, continue therapy discussion with patient about course of treatment and patient instructions. education on serotonin syndrome 09/09/2024 Other Bipolar Disorder: Care Instructions material was published, Learning About Long-Acting Injectable Antipsychotic Medicines material was published, Learning About How to Get Help During a Mental Health Crisis material was published, Learning About Movement Disorders From Antipsychotic Medicines material was published, Learning About Mood Disorders material was published, Aripiprazole material was published, Duloxetine material was published, Trazodone material was published Bipolar I - mild depression Patient stop Invega 3 mg patient reported body aches disucss medication to control melva s/s recent melva 08/12 discuss and educated on adding Abilify 5 mg at night discuss benefits, side effects and risk Lamotrigine 200 mg bedtime, Cymbalta 60 mg daily, Anxiety- Buspar 7.5 mg daily Sleep Trazodone 50 mg bedtime ADHD- no rx schedule therapy JENNIFER hx SSRI side effects discussed including but not limited to, gastric upset, nausea, vomiting, diarrhea and/or constipation, weight changes, sexual side effects including loss of libido, increased suicidal thoughts/behavio rs in children and young adults, and serotonin syndrome. Second generation antipsychotics (SGAs) have metabolic syndrome issues with weight gain, increase in prolactin, increased waist circumference, increased lipids, and increased glucose. Thus routine monitoring of weight, metabolic labs, etc. is indicated. A general rank ordering of antipsychotics that have the greatest to the least risk of metabolic effects is olanzapine, quetiapine, risperidone, ziprasidone, and aripiprazole. However, weight gain can occur with all of these drugs and considerable variability exists among patients receiving the same drug regarding the risk of metabolic effects. Anti-psychotic agents not only increase the risk of metabolic disorder, they also increase the risk of CVA, akathisia, and movement disorders including EPS or tardive dyskinesia (more common with first generation antipsychotics) and more. educated on all medications, benefits, side effects and risk, and educated on depression, anxiety, and ADHD, mood d/o and educated on compliance of medications, metabolic and movement d/o education appointment's, continue therapy discussion with patient about course of treatment and patient instructions. education on serotonin syndrome Plan Of Treatment No Information Insurance Providers Payer Name Payer Address Payer Phone Subscriber Number Group Number Insured Name Patient Relationship to Insured Coverage Start Date Coverage End Date [employer] Medicare Replacemen t/Advantag e - Ppo [address] [place] [phone] [id number] MICHAEL SYLVESTER CH Self - patient is the insured Medications Administered Medication Instructions Date of Administration Dosage Notes Invega Sustenna 05/09/2024 156 mg Invega Sustenna 05/02/2024 234 mg Medical (General) History Medical History History ICD Code Problems: Adjustment disorder with depre ssed mood Disorder of endocrine ovary Dissociation - mental defense mechanism Generalized anxiety disorder Heart disease Herpes zoster Impaired fasting glycemia Iron deficiency anemia Major depression, single episode Mixed bipolar affective disorder, mild Mixed hyperlipidemia Moderate bipolar disorder Moderate recurrent major depression Normal grief reaction Pleurisy Primary insomnia Recurrent hypersomnia Severe depressed bipolar I disorder with out psychotic features System disorder of the nervous system Vitamin B-complex deficiency Vitamin D deficiency , Surgical History Surgery Date(Month/Year) Appendectomy (77139) Hysterectomy/revise vagina (65903) Unlisted procedure breast (79254) Hysterectomy (11669) 06/18/2004 Breast surgery (65815) 09/27/2015 Any surgical history 10/27/2004 Cataract surgery (97752) 11/17/2019 urinary stimulator 04/10
--- OUTSIDE RECORDS SUMMARY | 2024-11-17 01:21 | XMS_ITS | Clinical Summary ---
Author Organization [facility] Address [address] [place] [address] Care Team Providers Care Bow String Maker Name Role Phone Jonah Corcoran MD Primary Care Provider [phone] Source Comments [facility],non-owned Affiliates and Associated Physician Practices is amultiple site organization consisting of ambulatory clinics and hospital sitesin [place], [place] and [place]. This disclosure is being madepursuant to the Care Everywhere program and may not contain all information available regarding this patient. Last updated 18.[facility] Allergies Active Allergy Reactions Criticality Noted Date Comments Diphenhydramine Other Low 08/19/2020 anxiety Melatonin Vomiting Medium 08/19/2020 Medications * Be aware that medications may not be up to date on this document. Alwaysverify current medications with the patient. nebivolol (BYSTOLIC) 20 MG tablet Take 20 mg by mouth once daily Active milnacipran (SAVELLA) 100 MG tablet Take 100 mg by mouth 2 times daily Active spironolactone (ALDACTONE) 100 MG tablet Take 100 mg by mouth once daily Active pramipexole (MIRAPEX) 1.5 MG tablet Take 3 mg by mouth at bedtime Active POTASSIUM PO Active gabapentin (NEURONTIN) 300 MG capsule Take 1 (one) capsule by mouth 3 times daily 90 capsule 10 01/05/2021 Active ketorolac (ACULAR) 0.5 % ophthalmic solution 12/20/2020 Active levothyroxine (SYNTHROID) 25 MCG tablet 12/23/2020 Active timolol maleate (TIMOPTIC) 0.5 % ophthalmic solution INSTILL 1 DROP INTO LEFT EYE TWICE DAILY 01/04/2021 Active ALPRAZolam (XANAX) 0.25 MG tablet Take 0.25 mg by mouth 2 times daily as needed anxiety 03/08/2021 Active famotidine (PEPCID) 20 MG tablet Take 20 mg by mouth 2 times daily 03/08/2021 Active gabapentin enacarbil ER (HORIZANT) 300 MG tabletIndicatio ns:Restless legs syndrome (RLS) Take 1 (one) tablet by mouth every evening 30 tablet 5 03/29/2021 Active cyanocobalamin (VITAMIN B-12) injectionIndica tions:Vitamin B12 deficiency Inject 1000 mg IM weekly for 4 weeks then 1000 mg IM monthly onwards. 4 mL 3 03/29/2021 Active Syringe/Needle, Disp, 25G X 1 1 ML MISCIndications :Vitamin B12 deficiency Use 1 Each every 7 days 4 Each 3 03/29/2021 Active leflunomide (ARAVA) 20 MG tablet TAKE 1 TABLET BY MOUTH EVERY DAY 30 tablet 2 06/22/2021 Active Active Problems Problem Noted Date Diagnosed Date Seronegative rheumatoid arthritis 03/21/2021 Inflammatory arthritis 01/17/2021 Fibromyalgia 01/17/2021 Polyneuropathy 01/05/2021 Spinal stenosis of lumbar re gion without neurogenic claudication 01/05/2021 Family History Medical History Relation Name Comments Diabetes - Type 2 Brother 1 Amrit Sleep Disorder - Other Brother 1 Amrit ZAHRAA o n CPAP Cancer - Prostate Brother 2 Allan Diabetes - Type 2 Brother 3 Art Other Brother 3 Art cerebral palsy CVA Father Cancer - Prostate Father Heart Failure Father Heart Failure Mother Sleep Disorder - Other Mother RLS COPD - Chronic Obstructive Pulmonary Disease Sister 1 Manda Heart Failure Sister 1 Manda Cancer - Breast Sister 2 Mikayla Hypertension Sister 2 Mikayla Relation Name Status Comments Brother 1 Amrit Brother 2 Allan Alive Brother 3 Art Alive Father Mother Sister 1 Manda Alive Sister 2 Mikayla Alive Social History Tobacco Use Types Packs/Day Years Used Date Smoking Tobacco: Never Smokeless Tobacco: Never Tobacco Cessation:Counseling Given: Yes Alcohol Use Standard Drinks/Week Comments Never 0 (1 standard drink = 0.6 oz pur e alcohol) Comments No Sex and Gender Information Value Date Recorded Sex Assigned at Not on file Legal Sex Female 6:02 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 Gender Identity Not on file Sexual Orientation Not on file 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 on file Not on file Not on file Last Filed Vital Signs Vital Sign Reading Time Taken Comments Blood Pressure 140/72 03/21/2021 11:18 AM CDT Pulse 89 03/21/2021 11:18 AM CDT Temperature 36.9 C (98.4 F) 03/21/2021 11:18 AM CDT Respiratory Rate 16 01/17/2021 3:16 PM CDT Oxygen Saturation 96% 03/21/2021 11:18 AM CDT Inhaled Oxygen Concentration - - Weight 89.4 kg (197 lb) 03/28/2021 8:12 PM CDT Height 162.6 cm (5' 4) 03/28/2021 8:12 PM CDT Body Mass Index 33.81 03/28/2021 8:12 PM CDT Plan of Treatment Health Maintenance Due Date Last Done Comments BONE DENSITY TESTING 1950 COLOGUARD (AGES 45-75) - COL ON CA SCREENING 1950 COLON MONITORING 1952 COLONOSCOPY - COLON CA SCREENING 1952 CT COLONOGRAPHY - COLON CA SCREENING 1950 Colorectal Cancer Screening 1950 FIT - COLON CA SCREENING 1952 FLEX SIG - COLON CA SCREENING 1950 MAMMOGRAM 1950 HEPATITIS C SCREENING 12/01/1970 DTAP/TDAP/TD VACCINES (1 - Tdap) 12/06/1971 PNEUMOCOCCAL VACCINE 50+ (1 of 1 - PCV) 2002 ZOSTER VACCINE (1 of 2) 2002 SCREENING FOR DIABETES 01/06/2024 , 11/10/2020 COVID-19 VACCINE (2 - 2023-2 5 season) 2024 08/13/2020 DEPRESSION SCREENING 06/18/2024 INFLUENZA VACCINE (Season Ended) 2025 LIPID TESTING 07/24/2025 07/24/2020 Respiratory Syncytial Virus (RSV) Vaccine Pt: or over 60 yrs (1 - 1-dose 75+ series) 12/06/2027 HEPATITIS B VACCINE Aged Out No longe r eligible based on patient's age to complete this topic HIB VACCINE Aged Out No longer eligi ble based on patient's age to complete this topic HPV VACCINE Aged Out No longer eligi ble based on patient's age to complete this topic MENINGOCOCCAL (Group B) VACCINE SHARED DECISION-MAKING Aged Out No longer eligible based on patient's age to complete this topic MENINGOCOCCAL GROUPS A/C/Y/W VACCINE Aged Out No longer eligible b ased on patient's age to complete this topic Medical Devices Implanted Type Area Search Marketing Specialist Device Identifier Shelf Expiration Date Model / Serial / Lot Implant Lead-01/20/2020 Implanted:Qty : 1 on 01/20/2020 Implant Lead [employer] [id number] / / Description:Tx/Rx coil, Head MRI scan ONLY Interstim Ii Implanted:09/2019 (Quantity not on file) Neuro Stimulator [employer] [id number] / [id number] / Procedures Procedure Name Priority Date/Time Associated Diagnosis Comments HEMOGLOBIN A1C Routine 01/05/2021 4:14 PM CDT Polyneuropathy from Last 3 Months or Most Recently Relevant to Health Maintenance Results * HEMOGLOBIN A1C (01/05/2021 4:14 PM CDT) Hemoglobin A1c 6.2 4.4 - 6.3 % 01/06/2021 10:04 AM CDT [facility] Estimated Average Glucose 131 mg/dL 01/06/2021 10:04 AM T [facility] Comment: HbA1c Interpretation: Treatment target values recommended by ADA and other clinical organizations should be used to evaluate metabolic control in patients. Treatment Target Values: Normal : < 5.7% Pre-diabetes: 5.7-6.4% Diabetes: Equal to or greater than 6.5% Reference: [place] [employer] Standards of Care in Diabetes -2014 In patients 70 years and older consider HbA1c target range of 7.0-7.5% Reference: Diabetes Mellitus in Older People: Position Statement on behalf of the International Association of Gerontology and Geriatrics (IAGG), the Diabetes Working Republican for Older People (EDWPOP), and the International Task Force of Experts in Diabetes. Arnel Hines, et al. J [place] [employer] Association. 2012 Test results diagnostic of diabetes should be repeated for confirmation. The Sebia Capillary 2 assay for the measurement of HbA1c is a National Glycohemoglobin Standardization Program (NGSP)certified method. Blood BLOOD SPECIMEN / Unknown Lab Venipuncture / Unknown 01/05/2021 4:14 PM CDT 01/05/2021 4:33 PM CDT us Alcira Gonzalez MD LAB - CHEMISTRY ORDERABLES Fi nal Result [facility] [address] [place] [address], [facility] [phone] from Last 3 Months or Most Recently Relevant to Health Maintenance Insurance [facility] MANAGED MEDICARE ADV [facility] MANAGED MEDICARE ADV Care Teams Bow String Maker Relationship Specialty Start Date End Date Jonah Corcoran MD [address] [place] [address] PCP - General 01/27/21
[2024-11-17 10:26] VITALS: BP 139/68; PULSE 100; RESP 18; TEMP 36.8; O2SAT 97
[2024-11-17] MEDS: LACTATED RINGERS 1,000 ML 150 ML IV CONT (10:37)
--- NOTE | 2024-11-17 10:37 | WPDANESEPPF ---
Anes - Initial Pre Proc Eval Procedure: Operation Date: 11/17/24 14:30 Proposed Procedures p Screening Colonoscopy - Lamont Joseph MD Date/Time: 11/17/24 10:37 Surgeon: Lamont Joseph MD Pre Op Diagnosis: Encounter for screening for malignant neoplasm of Patient Data Age: 73 Gender: F Height: 1.63 m Weight: 84 kg Allergies Allergy/AdvReac Type Severity Reaction Status Date / Time melatonin AdvReac Severe Vomiting Verified 11/17/24 10:23 diphenhydramine (From AdvReac Unknown Shakiness Verified 11/17/24 10:23 Benadryl) Home Medications ?Medication ?Instructions ?Recorded ?Confirmed ?Type famotidine 20 mg tablet 20 mg PO BID #60 tabs 03/08/21 11/17/24 Rx levetiracetam 500 mg tablet 500 mg PO Q12H 04/24/23 11/17/24 History (Keppra) rosuvastatin 10 mg tablet 10 mg PO DAILY #30 tabs 08/02/23 11/17/24 Rx pramipexole 1.5 mg tablet 1.5 mg PO QHS #90 tabs 11/13/23 11/17/24 Rx duloxetine 60 mg capsule,delayed 60 mg PO BID #60 caps 11/22/23 11/17/24 Rx release (Cymbalta) buspirone 7.5 mg tablet 7.5 mg PO BID 12/13/23 11/17/24 History levothyroxine 25 mcg tablet 25 mcg PO DAILY #30 tabs 12/27/23 11/17/24 Rx albuterol sulfate 90 mcg/actuation 1 - 2 inh inhalation Q4-6H PRN 04/01/24 11/11/24 Rx aerosol inhaler shortness of breath or wheezing #8.5 grams furosemide 20 mg tablet 20 mg PO QAM edema #30 tabs 04/01/24 11/17/24 Rx trazodone 50 mg tablet 50 mg PO QHS PRN sleep 07/01/24 11/11/24 History nebivolol 20 mg tablet 20 mg PO DAILY 90 days #90 tabs 08/25/24 11/17/24 Rx spironolactone 50 mg tablet 100 mg (2 x 50 mg) PO DAILY PRN 09/04/24 11/17/24 Rx edema #30 tabs semaglutide 2 mg/dose (8 mg/3 mL) 2 mg (0.75 mL) subcut WEEKLY #3 mL 09/09/24 11/17/24 Rx subcutaneous pen injector (Ozempic) cyclobenzaprine 10 mg tablet 5 - 10 mg (0.5 - 1 x 10 mg) PO QHS 10/27/24 11/11/24 Rx PRN muscle spasm #30 tabs Patient hx anesthesia problems: none Family hx anesthesia problems: none Results Review: All pre-operative results and documents have been reviewed as part of the pre-operative evaluation. [facility] Past Medical History Medical History Screening for colon cancer Muscle spasm CAD (coronary artery disease) Pain with bowel movements Pelvic pain Left lower quadrant pain Urinary urgency Lower abdominal pain Diabetes mellitus Elevated TSH Adenomatous colon polyp GERD (gastroesophageal reflux disease) Irritable bowel syndrome with diarrhea Peripheral edema Fecal incontinence Abdominal pain Essential tremor BMI 25.0-25.9,adult Anemia Meningioma Thoracic back pain Rib pain on left side Anxiety Weakness Serum calcium elevated BMI 27.0-27.9,adult Bipolar disorder Body mass index (BMI) of 31.0 to 31.9 in adult Prediabetes Upper respiratory tract infection Fever blister Seizure Dysuria Hyperuricemia BMI 33.0-33.9,adult Muscle cramp Pain, joint, multiple sites Hyperlipidemia Elevated fasting glucose CKD (chronic kidney disease) stage 3, GFR 30-59 ml/min Breast cancer screening 03/27/22 - benign Dyspnea on exertion Osteopenia 03/16/22 DEXA - normal; repeat 2 years B12 deficiency Hypertension Need for hepatitis C screening test Fatigue Shortness of breath Wheezing Chest pain Cough Acute sinusitis Fatigue Nausea Right knee pain Pain in right leg Leg edema, right Memory loss Cataracts, both eyes Bunion, left foot Foot pain, left BMI 32.0-32.9,adult Overactive bladder Restless leg syndrome Bilateral edema of lower extremity Dyspnea on exertion Gastric neurostimulator device in situ implanted October 2019 at [facility] Personal history of colonic polyps Biopsy shows tubular adenoma (October 2019) Chronic diastolic (congestive) heart failure Fibromyalgia Generalized anxiety disorder Depression UTI (urinary tract infection) Left ovarian cyst Degenerative disc disease Diverticulitis HTN (hypertension) Breast cancer Left ADHD (attention deficit hyperactivity disorder) Bipolar II disorder with rapid cycling Irritable bowel syndrome with constipation Surgical History Surgical History History of bladder suspension procedure H/O rectal polypectomy H/O colonoscopy History of appendectomy Family History Family History Father Cerebrovascular accident Family history of lung cancer Mother Family history of coronary artery disease Other Family history of cardiovascular disease Family history of malignant neoplasm Social History Social History Smoking status: Never smoker Alcohol intake: never Substance use: never Substance use type: does not use Lack of Transportation: No Lack of Food: Never True Current Housing: I Have Housing Concerned About Future Housing: No Difficulty Paying Gas/Electric Bills: No Difficulty Paying for Meds: No Currently Unemployed: No Education: High School Diploma/GED Difficulty w/ Childcare or Family Care: No Living arrangements: with family Additional living arrangements comments: LIVES W/ , SAGE Gender identity (if verbalized by the patient): Female Spiritual care concerns: No Anes - Eval Final PreProcedure Day of Procedure 11/17/24 10:37 Patient weight: obese Heart: regular rate and rhythm Lungs: clear to auscultation Airway: Mallampati scale class II Neurological: alert and oriented Last oral intake: >/= 8 hours ASA classification: III Emergent: no Anesthetic plan: proceed Anesthesia type and monitoring: general GIVS and standard monitoring Results Review: All pre-operative results and documents have been reviewed as part of the pre-operative evaluation. Informed Consent: The patient's anesthetic plan and its attendant risks and benefits were discussed with the patient/family/POA. Questions were solicited and answers provided to the satisfaction of the patient/family/POA.
--- NOTE | 2024-11-17 11:32 | PM.HPGS ---
History of Present Illness History of Present Illness Consent: Risks, benefits, and alternatives have been discussed and questions answered. Patient agrees to proceed with procedure. Chief complaint: Encounter for screening for malignant neoplasm of Narrative: Ratna Teran is a 73 year old female with colon polyps Review of Systems Review of Systems: All systems reviewed & are unremarkable except as noted in HPI and below PMFSH Past Medical History Medical History Screening for colon cancer Muscle spasm CAD (coronary artery disease) Pain with bowel movements Pelvic pain Left lower quadrant pain Urinary urgency Lower abdominal pain Diabetes mellitus Elevated TSH Adenomatous colon polyp GERD (gastroesophageal reflux disease) Irritable bowel syndrome with diarrhea Peripheral edema Fecal incontinence Abdominal pain Essential tremor BMI 25.0-25.9,adult Anemia Meningioma Thoracic back pain Rib pain on left side Anxiety Weakness Serum calcium elevated BMI 27.0-27.9,adult Bipolar disorder Body mass index (BMI) of 31.0 to 31.9 in adult Prediabetes Upper respiratory tract infection Fever blister Seizure Dysuria Hyperuricemia BMI 33.0-33.9,adult Muscle cramp Pain, joint, multiple sites Hyperlipidemia Elevated fasting glucose CKD (chronic kidney disease) stage 3, GFR 30-59 ml/min Breast cancer screening 03/27/22 - benign Dyspnea on exertion Osteopenia 03/16/22 DEXA - normal; repeat 2 years B12 deficiency Hypertension Need for hepatitis C screening test Fatigue Shortness of breath Wheezing Chest pain Cough Acute sinusitis Fatigue Nausea Right knee pain Pain in right leg Leg edema, right Memory loss Cataracts, both eyes Bunion, left foot Foot pain, left BMI 32.0-32.9,adult Overactive bladder Restless leg syndrome Bilateral edema of lower extremity Dyspnea on exertion Gastric neurostimulator device in situ implanted October 2019 at [facility] Personal history of colonic polyps Biopsy shows tubular adenoma (October 2019) Chronic diastolic (congestive) heart failure Fibromyalgia Generalized anxiety disorder Depression UTI (urinary tract infection) Left ovarian cyst Degenerative disc disease Diverticulitis HTN (hypertension) Breast cancer Left ADHD (attention deficit hyperactivity disorder) Bipolar II disorder with rapid cycling Irritable bowel syndrome with constipation Surgical History Surgical History History of bladder suspension procedure H/O rectal polypectomy H/O colonoscopy History of appendectomy Family History Family History Father Cerebrovascular accident Family history of lung cancer Mother Family history of coronary artery disease Other Family history of cardiovascular disease Family history of malignant neoplasm Social History Social History Smoking status: Never smoker Alcohol intake: never Substance use: never Substance use type: does not use Lack of Transportation: No Lack of Food: Never True Current Housing: I Have Housing Concerned About Future Housing: No Difficulty Paying Gas/Electric Bills: No Difficulty Paying for Meds: No Currently Unemployed: No Education: High School Diploma/GED Difficulty w/ Childcare or Family Care: No Living arrangements: with family Additional living arrangements comments: LIVES W/ , [place] Gender identity (if verbalized by the patient): Female Spiritual care concerns: No Meds Home Medications and Allergies Home Medications ?Medication ?Instructions ?Recorded ?Confirmed ?Type famotidine 20 mg tablet 20 mg PO BID #60 tabs 03/08/21 11/17/24 Rx levetiracetam 500 mg tablet 500 mg PO Q12H 04/24/23 11/17/24 History (Keppra) rosuvastatin 10 mg tablet 10 mg PO DAILY #30 tabs 08/02/23 11/17/24 Rx pramipexole 1.5 mg tablet 1.5 mg PO QHS #90 tabs 11/13/23 11/17/24 Rx duloxetine 60 mg capsule,delayed 60 mg PO BID #60 caps 11/22/23 11/17/24 Rx release (Cymbalta) buspirone 7.5 mg tablet 7.5 mg PO BID 12/13/23 11/17/24 History levothyroxine 25 mcg tablet 25 mcg PO DAILY #30 tabs 12/27/23 11/17/24 Rx albuterol sulfate 90 mcg/actuation 1 - 2 inh inhalation Q4-6H PRN 04/01/24 11/11/24 Rx aerosol inhaler shortness of breath or wheezing #8.5 grams furosemide 20 mg tablet 20 mg PO QAM edema #30 tabs 04/01/24 11/17/24 Rx trazodone 50 mg tablet 50 mg PO QHS PRN sleep 07/01/24 11/11/24 History nebivolol 20 mg tablet 20 mg PO DAILY 90 days #90 tabs 08/25/24 11/17/24 Rx spironolactone 50 mg tablet 100 mg (2 x 50 mg) PO DAILY PRN 09/04/24 11/17/24 Rx edema #30 tabs semaglutide 2 mg/dose (8 mg/3 mL) 2 mg (0.75 mL) subcut WEEKLY #3 mL 09/09/24 11/17/24 Rx subcutaneous pen injector (Ozempic) cyclobenzaprine 10 mg tablet 5 - 10 mg (0.5 - 1 x 10 mg) PO QHS 10/27/24 11/11/24 Rx PRN muscle spasm #30 tabs Allergies Allergy/AdvReac Type Severity Reaction Status Date / Time melatonin AdvReac Severe Vomiting Verified 11/17/24 10:23 diphenhydramine (From AdvReac Unknown Shakiness Verified 11/17/24 10:23 Benadryl) Exam Const: General: comfortable and no acute distress HENMT: Face/Nose/Sinus: Normal nares present Eyes: General: appearance normal, both eyes and all related structures Neck: Neck: no JVD Resp: Auscultation: clear to auscultation bilaterally Cardio: Rate: regular rate Rhythm: regular rhythm GI: Inspection: non-distended GI Palp: Yes Soft to palpation Skin: General skin exam: normal color Neuro: General: gait normal Speech: normal speech Extrem: General: normal to inspection Psych: Mental Status: mental status grossly normal Assessment and Plan Assessment and plan (1) Adenomatous colon polyp: Code(s): D12.6 - Benign neoplasm of colon, unspecified Status: Acute Assessment and Plan: colonoscopy
--- NOTE | 2024-11-17 11:57 | S_PTH ---
PATIENT: Ratna Teran LOC: [facility]#:[id number] AGE/SX: 73/F ROOM: RE11/17/[address]: Lamont Joseph MD : 1950 BED: DIS: 11/17/2024 SPEC #: [id number] RECD: 11/17/24 13:16 STATUS: ROB DICKINSON #: [id number] PEGGY: 11/17/24 11:[address]: Lamont Joseph DEPT: [facility] Surgical RECD BY: Sita Ayala ENTERED: 11/17/24 13:17 SP TYPE: Surgical OTHR DR: Bren Andre APRN Tissues: A - Colon Polypectomy B - Colon Polypectomy Procedures: Hematoxylin and Eosin Stain Gross and Microscopic Level 4
[2024-11-17 11:58] VITALS: BP 113/60; PULSE 91; RESP 23; O2SAT 98
[2024-11-17 12:08] VITALS: BP 110/67; PULSE 90; RESP 18; O2SAT 98
[2024-11-17 12:18] VITALS: BP 119/67; PULSE 80; RESP 18; O2SAT 99
--- NOTE | 2024-11-17 12:41 | SUR.PHASEII ---
Pt displayed seizure like symptoms, staring, looking confused,slow to respond spouse Hood stated similar to other seizures in past only lasting approximately 7 minutes, when Pt awoke was very pleasant,alert and talkative.
== END 2024-11-17 12:39 | disposition home or self-care (01) ==
PROVIDERS: PCP Nurse Practitioner Family; Referring Provider Nurse Practitioner Family; Visit Provider Internal Medicine Gastroenterology
PROC: 0DJD8ZZ Inspection of Lower Intestinal Tract, Via Natural or Artificial Opening Endoscopic (ICD-10-PCS; CPT 45378; principal; 2024-11-17 14:30)
DX: Z12.11 Encounter for screening for malignant neoplasm of colon (principal); D12.5 Benign neoplasm of sigmoid colon; D12.8 Benign neoplasm of rectum; K64.8 Other hemorrhoids; K57.30 Diverticulosis of large intestine without perforation or abscess without bleeding; E11.22 Type 2 diabetes mellitus with diabetic chronic kidney disease; I12.9 Hypertensive chronic kidney disease with stage 1 through stage 4 chronic kidney disease, or unspecified chronic kidney disease; N18.30 Chronic kidney disease, stage 3 unspecified; E78.5 Hyperlipidemia, unspecified; K58.2 Mixed irritable bowel syndrome; K21.9 Gastro-esophageal reflux disease without esophagitis; D64.9 Anemia, unspecified; I25.10 Atherosclerotic heart disease of native coronary artery without angina pectoris; E53.8 Deficiency of other specified B group vitamins; N32.81 Overactive bladder; G25.81 Restless legs syndrome; I50.22 Chronic systolic (congestive) heart failure; G25.0 Essential tremor; F41.9 Anxiety disorder, unspecified; R39.15 Urgency of urination; R15.9 Full incontinence of feces; M62.838 Other muscle spasm; R56.9 Unspecified convulsions; E79.0 Hyperuricemia without signs of inflammatory arthritis and tophaceous disease; M85.88 Other specified disorders of bone density and structure, other site; R41.3 Other amnesia; M79.7 Fibromyalgia; F90.9 Attention-deficit hyperactivity disorder, unspecified type; F31.81 Bipolar II disorder; Z79.51 Long term (current) use of inhaled steroids; Z79.85 Long-term (current) use of injectable non-insulin antidiabetic drugs; Z98.890 Other specified postprocedural states; Z96.82 Presence of neurostimulator; Z87.19 Personal history of other diseases of the digestive system; Z85.3 Personal history of malignant neoplasm of breast; Z80.1 Family history of malignant neoplasm of trachea, bronchus and lung; Z82.49 Family history of ischemic heart disease and other diseases of the circulatory system
CPT/HCPCS: 45385; 88305; J2704; J7120

== ENCOUNTER 2025-01-15 12:31 | Outpatient (CLI) | payer MEDICARE, SELFPAY ==
--- NOTE | ~2025-01-15 | DEXA_ITS ---
Bone Density Report Name: MICHAEL VIZCARRA Age: 74 Sex: Female Ethnicity: White Date of : 1950 Indication: postmenopausal; screening for osteoporosis; parental hip fracture; height loss; cancer; seizure disorder; hysterectomy; Referring Provider: FIOR BYRD Study: Bone densitometry was performed. Exam Date: January 15, 2025 Accession number: [id number] Bone Density: Region BMD T-score Z-score Classification AP Spine(L1-L4) 1.002 -0.4 1.8 Normal Femoral Neck (Left) 0.767 -0.7 1.2 Normal Total Hip (Left) 0.940 0.0 1.6 Normal Femoral Neck (Right) 0.758 -0.8 1.1 Normal Total Hip (Right) 0.873 -0.6 1.0 Normal Total Hip Mean 0.906 -0.3 1.3 Normal World Health Organization criteria for BMD impression classify patients as: Normal (T-score at or above -1.0), Osteopenia (T-score between -1.0 and -2.5), or Osteoporosis (T-score at or below -2.5). 10-year Fracture Risk: FRAX not reported because: All T-scores for Spine Total, Hip Total, Femoral Neck at or above -1.0 Previous Exams: -- Region Exam Age BMD T-score BMD Change BMD Change Date g/cm2 vs Baseline vs Previous -- AP Spine (L1-L4) 01/15/2025 74 1.002 -0.4 -11.6%# -11.6%# 10/19/2004 53 1.133 0.8 Total Hip(Left) 01/15/2025 74 0.940 0.0 -16.1%# -16.1%# 10/19/2004 53 1.120 1.5 Total Hip(Right) 01/15/2025 74 0.873 -0.6 -18.3%# -18.3%# 10/19/2004 53 1.068 1.0 -- *Denotes significance at 95% confidence level, LSC for AP Spine = 0.022 g/cm2, LSC for Total Hip = 0.027 g/cm2 # Denotes dissimilar scan types or analysis methods Clinical Information Provided by Patient: Parent has had a hip fracture Has the following medical conditions: Any Seizure Disorders, Cancer, Hysterectomy Patient maximum height was 66 Menopause Age: 50 No regular weight bearing exercise Drinks caffeinated beverages Onset of menses at age 17 Number of children 3 Impression: The patient has normal bone mass. The patient has risk factors, including: parental hip fracture. Unable to evaluate interval change due to the use of different scan modes. Discussion: BONE DENSITY IS ABOVE THE MINIMUM DESIRABLE LEVEL AT ALL SKELETAL SITES TESTED. This patient?s bone mineral density is above the minimum desirable level (T-score -1.0 or better) at all sites measured. The patient should follow a healthful lifestyle (good nutrition with adequate calcium and vitamin D, and appropriate weight-bearing exercise). Follow-Up: Consider repeating this study in 5 years or sooner if there is some new clinical indication. Reported by: [place] on 01/15/2025 12:51:00 PM. Reviewed, dictated and finalized at location A.
== END 2025-01-15 12:32 | disposition home or self-care (01) ==
LOC: MICIMG 12:32
PROVIDERS: PCP Nurse Practitioner Family; Visit Provider Nurse Practitioner Family
DX: Z78.0 Asymptomatic menopausal state (principal)
CPT/HCPCS: 77080